=== PATIENT | male | born 1945 | race Caucasian/White ===

== ENCOUNTER 2017-08-16 09:32 | Inpatient (IN) | payer MEDICARE, OTHER ==
[~2017-08-16] VITALS: Ht 182.9 cm; Wt 81.5 kg
[2017-08-16] MEDS ORDERED: IODIXANOL 320 MG/ML 10 ML VIAL (for Rad CT) IVCONTRAST ONE (09:33)
[2017-08-16 09:42] VITALS: BP 138/68; PULSE 106; RESP 21; TEMP 97.5; O2SAT 100
--- NOTE | 2017-08-16 10:03 | RADRPT ---
EXAM DATE/TIME: 08/16/2017 09:49 [facility] COMPARISON: No previous studies available for comparison. INDICATIONS : Palpitations with shortness of breath. MEDICAL HISTORY : Hypertension. Hypercholesterolemia. SURGICAL HISTORY : None. ENCOUNTER: Initial ACUITY: 1 day PAIN SCORE: 0/10 LOCATION: Bilateral chest FINDINGS: A single view of the chest demonstrates the lungs to be symmetrically aerated without evidence of mas s, infiltrate or effusion. The cardiomediastinal contours are unremarkable. Osseous structures are intact. CONCLUSION: No acute disease. Tahir Gutiérrez MD on August 16, 2017 at 10:00 Board Certified Radiologist. This report was verified electronically.
[2017-08-16] MEDS ORDERED: TRIA37.53 PO (10:04)
[2017-08-16] MEDS ORDERED: SIMV10TA PO (10:04)
[2017-08-16] MEDS ORDERED: XARE20TA PO (10:04)
[2017-08-16] MEDS ORDERED: ALLO100T PO (10:04)
[2017-08-16] MEDS ORDERED: BYST10TA2 PO (10:04)
[2017-08-16] MEDS ORDERED: JAKAFI PO (10:04)
[2017-08-16 10:16] LABS: HEMATOCRIT 27.6 % (39.0-51.0); HEMOGLOBIN 8.8 GM/DL (13.0-17.0); MEAN CELL VOLUME 97.9 FL (80.0-100.0); MEAN CORPUSCULAR HEMOGLOBIN 31.1 PG (27.0-34.0); MEAN CORPUSCULAR HGB CONC 31.7 % (32.0-36.0); MEAN PLATELET VOLUME 9.3 FL (7.0-11.0); PLATELET COUNT 132 TH/MM3 (150-450); RED BLOOD COUNT 2.82 MIL/MM3 (4.50-5.90); RED CELL DISTRIBUTION WIDTH 28.2 % (11.6-17.2); WHITE BLOOD COUNT 28.2 TH/MM3 (4.0-11.0)
[2017-08-16 10:29] LABS: INTERNATIONAL NORMALIZED RATIO 1.4 RATIO; PROTHROMBIN TIME - PATIENT 14.4 SEC (9.8-11.6)
[2017-08-16 10:37] LABS: ALBUMIN 3.6 GM/DL (3.4-5.0); AST (GOT) 42 U/L (15-37); BICARBONATE 17.7 MEQ/L (21.0-32.0); BLOOD UREA NITROGEN 27 MG/DL (7-18); CALCIUM 8.4 MG/DL (8.5-10.1); CHLORIDE 105 MEQ/L (98-107); CREATININE 1.76 MG/DL (0.60-1.30); GLOMERULAR FILTRATION RATE 38 ML/MIN (>89); GLUCOSE,RANDOM 288 MG/DL (74-106); MAGNESIUM 1.9 MG/DL (1.5-2.5); SODIUM (NA) 137 MEQ/L (136-145)
[2017-08-16 10:38] LABS: ALT (GPT) 32 U/L (12-78)
[2017-08-16 10:52] LABS: ALKALINE PHOSPHATASE 89 U/L (45-117); TOTAL BILIRUBIN ADULT 1.1 MG/DL (0.2-1.0); TOTAL PROTEIN 6.3 GM/DL (6.4-8.2); TROPONIN I 0.03 NG/ML (0.02-0.05)
[2017-08-16 10:54] LABS: BANDS 19 % (0-6); BASOPHILS 2 % (0-2); CORRECTED NUCLEATED RBC 6 /100 WBC (0-0); KERATOCYTES 1+ (NORMAL); LYMPHOCYTES 9 % (9-44); METAMYELOCYTES 2 % (0-1); MONOCYTES 6 % (0-8); MYELOCYTES 7 % (0-0); NEUTROPHIL # MANUAL DIFF 23.4 TH/MM3 (1.8-7.7); NUCLEATED RED BLOOD CELL 6 (0-0); OVALOCYTES 1+ (NORMAL); POLYS (SEG NEUTROPHILS) 55 % (16-70)
[2017-08-16 10:55] LABS: ACANTHOCYTES 1+ (NORMAL); TEARDROP RBCS 1+ (NORMAL)
--- NOTE | 2017-08-16 11:21 | RADRPT ---
EXAM DATE/TIME: 08/16/2017 10:54 [facility] COMPARISON: CHEST SINGLE AP, August 16, 2017, 9:49. INDICATIONS : Dizzy,diaphortic,abnormal heart rate. IV CONTRAST: 50 cc Visipaque (iodixanol) IV RADIATION DOSE: 10.09 CTDIvol (mGy) MEDICAL HISTORY : Hypertension. Mylofibrosis SURGICAL HISTORY : None. ENCOUNTER: Initial ACUITY: 1 day PAIN SCALE: 0/10 LOCATION: Right chest TECHNIQUE: Volumetric scanning of the chest was performed using a pulmonary embolism protocol MIP images were re constructed. Using automated exposure control and adjustment of the mA and/or kV according to patien t size, radiation dose was kept as low as reasonably achievable to obtain optimal diagnostic quality images. DICOM format image data is available electronically for review and comparison. Follow-up recommendations for detected pulmonary nodules are based at a minimum on nodule size and pa tient risk factors according to Fleischner Society Guidelines. FINDINGS: PULMONARY ARTERIES: No filling defects are seen in the pulmonary arteries through the segmental level. LUNGS: There is no consolidation or pneumothorax . No concerning pulmonary nodule is visualized. There is m ild atelectasis in the posterior left lower lobe. There is a calcified granuloma in the right MID gela g. PLEURAE: There is no pleural thickening or pleural effusion. MEDIASTINUM: There is good visualization of the great vessels of the middle mediastinum. No evidence of mediastin al or hilar adenopathy/mass. There are coronary artery calcifications and mild cardiomegaly. MUSCULOSKELETAL: Within normal limits for patient age. MISCELLANEOUS: The visualized upper abdominal organs demonstrate no acute abnormality. CONCLUSION: 1. No evidence of pulmonary embolism. 2. Minimal atelectasis in the posterior left lower lobe. 3. Coronary artery calcifications and mild cardiomegaly. Tahir Gutiérrez MD on August 16, 2017 at 11:16 Board Certified Radiologist. This report was verified electronically.
[2017-08-16] MEDS ORDERED: SODIUM CHLORID 0.9% 500 ML INJ 500 ML IV ONE (11:45)
--- NOTE | 2017-08-16 11:56 | PD ---
HPI Chief Complaint: Cardiac Complaint Time Seen by Provider: 09:47 Travel History International Travel<30 days: No Contact w/Intl Traveler<30days: No Traveled to known affect area: No History of Present Illness HPI Patient is a 72 year old male, BIBEMS for cardiac complaints. He says he was on the treadmill this morning like he usually does, and started to feel his heart racing and got very sweaty. EMS was called, on arrival he had a pulse rate in the 200s. He was given adenosine with conversion to sinus tachycardia in the low 100s. Patient says this happened to him once before in May and he was found to have a blood clot in his lungs. He does report compliance with his Xarelto. He says he was feeling fine prior to the event this morning. He has not had any chest pain or shortness of breath. He denies nausea or vomiting. He denies fever or chills. Severity is moderate. PFSH Past Medical History High Cholesterol: Yes Hypertension: Yes Medical other: Yes (MYLOFIBROSIS, PE- FILTER LEFT LEG) Social History Alcohol Use: No Tobacco Use: No Substance Use: No Allergies-Medications (Allergen,Severity, Reaction): Coded Allergies: No Known Allergies (Unverified , 08/16/17) Reported Meds & Prescriptions Reported Meds & Active Scripts Active Reported Allopurinol 100 Mg Tab 100 Mg PO DAILY Xarelto (Rivaroxaban) 20 Mg Tab 20 Mg PO DAILY Triamterene-Hydrochlorothiazide 37.5-25 Mg Cap 1 Cap PO DAILY Simvastatin 10 Mg Tab 10 Mg PO DAILY Bystolic (Nebivolol) 10 Mg Tab 10 Mg PO DAILY [Jakafi] 15 Mg PO BID Review of Systems Except as stated in HPI: all other systems reviewed are Neg General / Constitutional: No: Fever, Chills HENT: No: Headaches, Lightheadedness Cardiovascular: Positive: Palpitations Respiratory: No: Shortness of Breath Gastrointestinal: No: Nausea Musculoskeletal: No: Myalgias Skin: No Rash, No Change in Pigmentation Neurologic: No: Weakness, Dizziness Physical Exam Narrative GENERAL: Awake and alert, in no acute distress. SKIN: Focused skin assessment warm/dry. HEAD: Atraumatic. Normocephalic. EYES: Pupils equal and round. No scleral icterus. EOMI. ENT: Mucous membranes pink and moist. NECK: Trachea midline. No JVD. CARDIOVASCULAR: Tachycardia. No murmur appreciated. RESPIRATORY: No accessory muscle use. Clear to auscultation. Breath sounds equal bilaterally. GASTROINTESTINAL: Abdomen soft, non-tender, nondistended. MUSCULOSKELETAL: No obvious deformities. No clubbing. No cyanosis. Large edema of the left leg (chronic). NEUROLOGICAL: Awake and alert. No obvious cranial nerve deficits. Motor grossly within normal limits. Normal speech. PSYCHIATRIC: Appropriate mood and affect; insight and judgment normal. Data Data Last Documented VS Vital Signs Date Time Temp Pulse Resp B/P (MAP) Pulse Ox O2 Delivery O2 Flow Rate FiO2 08/16/17 09:42 97.5 106 21 138/68 (91) 100 Room Air Orders Orders Electrocardiogram (08/16/17 09:43) Ckmb (Isoenzyme) Profile (08/16/17 09:43) Complete Blood Count With Diff (08/16/17 09:43) Comprehensive Metabolic Panel (08/16/17 09:43) Magnesium (Mg) (08/16/17 09:43) Prothrombin Time / Inr (Pt) (08/16/17 09:43) Act Partial Throm Time (Ptt) (08/16/17 09:43) Troponin I (08/16/17 09:43) Chest, Single Ap (08/16/17 09:43) Ecg Monitoring (08/16/17 09:43) Iv Access Insert/Monitor (08/16/17 09:43) Oximetry (08/16/17 09:43) Oxygen Administration (08/16/17 09:43) Ct Pulmonary Angiogram (08/16/17 09:47) Iodixanol 320 Inj (Rad Ct) (Visipaque 32 (08/16/17 09:33) Sodium Chlorid 0.9% 500 Ml Inj (Ns 500 M (08/16/17 11:45) Aspirin Chew (Aspirin Chew) (08/16/17 12:00) Admit Order (Ed Use Only) (08/16/17 ) Labs Laboratory Tests Test 08/16/17 09:49 White Blood Count 28.2 TH/MM3 Red Blood Count 2.82 MIL/MM3 Hemoglobin 8.8 GM/DL Hematocrit 27.6 % Mean Corpuscular Volume 97.9 FL Mean Corpuscular Hemoglobin 31.1 PG Mean Corpuscular Hemoglobin Concent 31.7 % Red Cell Distribution Width 28.2 % Platelet Count 132 TH/MM3 Mean Platelet Volume 9.3 FL CBC Comment AUTO DIFF Differential Total Cells Counted 100 Neutrophils % (Manual) 55 % Band Neutrophils % 19 % Lymphocytes % 9 % Monocytes % 6 % Basophils % 2 % Neutrophils # (Manual) 23.4 TH/MM3 Metamyelocytes 2 % Myelocytes 7 % Nucleated Red Blood Cells 6 /100 WBC Differential Comment FINAL DIFF MANUAL Platelet Estimate LOW Platelet Morphology Comment ENLARGED Tear Drop Cells 1+ Ovalocytes 1+ Acanthocytes 1+ Keratocytes 1+ Prothrombin Time 14.4 SEC Prothromb Time International Ratio 1.4 RATIO Activated Partial Thromboplast Time 30.4 SEC Blood Urea Nitrogen 27 MG/DL Creatinine 1.76 MG/DL Random Glucose 288 MG/DL Total Protein 6.3 GM/DL Albumin 3.6 GM/DL Calcium Level 8.4 MG/DL Magnesium Level 1.9 MG/DL Alkaline Phosphatase 89 U/L Aspartate Amino Transf (AST/SGOT) 42 U/L Alanine Aminotransferase (ALT/SGPT) 32 U/L Total Bilirubin 1.1 MG/DL Sodium Level 137 MEQ/L Potassium Level 4.4 MEQ/L Chloride Level 105 MEQ/L Carbon Dioxide Level 17.7 MEQ/L Anion Gap 14 MEQ/L Estimat Glomerular Filtration Rate 38 ML/MIN Total Creatine Kinase 57 U/L Troponin I 0.03 NG/ML MDM Medical Decision Making Medical Screen Exam Complete: Yes Emergency Medical Condition: Yes Interpretation(s) ECG shows sinus tachycardia at a rate of 104, minimal ST depression in leads V3 through V6. Differential Diagnosis ACS versus PE versus electrolyte abnormality Narrative Course Patient is a 72-year-old male who comes in due to heart palpitations and diaphoresis. Patient was given adenosine by EMS prior to arrival and his rhythm is now sinus tachycardia in the 100s. IV established, labs sent. Patient connected to the monitor technician. Labs show a white blood cell count of 28 and a hemoglobin of 8.6. Patient reports this is normal for him due to his blood disorder. CTA of the chest shows no evidence of PE. No acute abnormalities. While in the emergency department, patient did have a quick run of V. tach lasting only about 3 seconds, converting back to sinus rhythm on its own. Patient will be admitted for further management. Given an aspirin. Diagnosis Primary Impression: Dysrhythmia, cardiac Qualified Codes: I49.9 - Cardiac arrhythmia, unspecified Admitting Information Admitting Physician Requests: Admit Alana Galloway MD Aug 16, 2017 11:56
[2017-08-16] MEDS ORDERED: ASPIRIN 81 MG CHEW TAB CHEW ONE (12:00)
[2017-08-16 12:54] VITALS: BP 109/61; PULSE 105; RESP 20; O2SAT 100
[2017-08-16] MEDS ORDERED: MORPHINE SULFATE 2 MG/ML INJ IV PUSH PRN (13:45)
[2017-08-16] MEDS ORDERED: ACETAMINOPHEN/HYDROcodone 325 MG/5 MG TAB PO PRN (13:45)
[2017-08-16] MEDS ORDERED: ACETAMINOPHEN/HYDROcodone 325 MG/7.5 MG TAB PO PRN (13:45)
[2017-08-16] MEDS ORDERED: NALOXONE HCL 0.4 MG/ML AMP IV PUSH PRN (13:45)
[2017-08-16] MEDS ORDERED: ACETAMINOPHEN 325 MG TAB PO PRN (13:45)
[2017-08-16] MEDS ORDERED: ONDANSETRON HCL 4 MG/2 ML VIAL IVP PRN (14:00)
[2017-08-16 14:27] VITALS: O2SAT 100
[2017-08-16 14:31] VITALS: BP 110/74; PULSE 104; RESP 16; TEMP 97.6; O2SAT 95
[2017-08-16 15:32] VITALS: BP 103/70; PULSE 107; RESP 16; TEMP 97.5; O2SAT 100
--- NOTE | 2017-08-16 15:36 | HHI.HP ---
[facility] Tressa Patrick MD Admission Diagnosis Chest Pain Diagnoses: Chief Complaint: short of breath Travel History International Travel<30 Days: No Contact w/Intl Traveler <30 Da: No Traveled to Known Affected Are: No History of Present Illness 72 years old male with history of a svt/PE 2 years ogo, and myelofibrosis recently started treatment with Dr. Keane, came to the ED after he had sudden short of breath palpitation he was found to be in 120 tachycardia mostly SVT he was given a dose of adenosine which brought down his heart rate to normal, I consulted cardiology who was in the room my nurse at the time I saw the patient, patient was describing his episodes as feeling weird, and short of breath, patient stated he feels right back to normal after the adenosine. Patient had a discussion with the cardiology plan on doing the 2D echo, verify his murmur most likely mitral regurg on auscultation, if that is not revealing major issue, then patient can be discharged on beta-philipp and Holter monitor to follow-up with cardiology Review of Systems All systems reviewed and was positive for what is mentioned in history of present illness otherwise negative Past Family Social History Past Medical History SVT, PE, myelofibrosis, hyperlipidemia Past Surgical History No significant surgery Allergies: Coded Allergies: No Known Allergies (Unverified , 08/16/17) Family History Diabetes mellitus in his mother Social History Denied tobacco alcohol or illicit drug abuse Physical Exam Vital Signs Vital Signs Date Time Temp Pulse Resp B/P (MAP) Pulse Ox O2 Delivery O2 Flow Rate FiO2 08/16/17 15:32 97.5 107 16 103/70 (81) 100 08/16/17 14:31 97.6 104 16 110/74 (86) 95 08/16/17 14:27 100 21 08/16/17 12:54 105 20 109/61 (77) 100 Room Air 08/16/17 09:42 97.5 106 21 138/68 (91) 100 Room Air Physical Exam GENERAL: This is a well-nourished, well-developed patient, in no apparent distress. SKIN: No rashes, ecchymoses or lesions. Cool and dry. HEAD: Atraumatic. Normocephalic. No temporal or scalp tenderness. EYES: Pupils equal round and reactive. Extraocular motions intact. No scleral icterus. No injection or drainage. ENT: Nose without bleeding, purulent drainage or septal hematoma. Throat without erythema, tonsillar hypertrophy or exudate. Uvula midline. Airway patent. NECK: Trachea midline. No JVD or lymphadenopathy. Supple, nontender, no meningeal signs. CARDIOVASCULAR: Regular rate and rhythm without 3 out of 6 to 4 out of 6 systolic murmur RESPIRATORY: Clear to auscultation. Breath sounds equal bilaterally. No wheezes , rales, or rhonchi. GASTROINTESTINAL: Abdomen soft, non-tender, nondistended. No hepato-splenomegaly , or palpable masses. No guarding. MUSCULOSKELETAL: Extremities without clubbing, cyanosis, or edema. No joint tenderness, effusion, or edema noted. No calf tenderness. Negative Homans sign bilaterally. NEUROLOGICAL: Awake and alert. Cranial nerves II through XII intact. Motor and sensory grossly within normal limits. Five out of 5 muscle strength in all muscle groups. Normal speech. Laboratory Laboratory Tests Test 08/16/17 09:49 White Blood Count 28.2 Red Blood Count 2.82 Hemoglobin 8.8 Hematocrit 27.6 Mean Corpuscular Volume 97.9 Mean Corpuscular Hemoglobin 31.1 Mean Corpuscular Hemoglobin Concent 31.7 Red Cell Distribution Width 28.2 Platelet Count 132 Mean Platelet Volume 9.3 CBC Comment AUTO DIFF Differential Total Cells Counted 100 Neutrophils % (Manual) 55 Band Neutrophils % 19 Lymphocytes % 9 Monocytes % 6 Basophils % 2 Neutrophils # (Manual) 23.4 Metamyelocytes 2 Myelocytes 7 Nucleated Red Blood Cells 6 Differential Comment FINAL DIFF MANUAL Platelet Estimate LOW Platelet Morphology Comment ENLARGED Tear Drop Cells 1+ Ovalocytes 1+ Acanthocytes 1+ Keratocytes 1+ Prothrombin Time 14.4 Prothromb Time International Ratio 1.4 Activated Partial Thromboplast Time 30.4 Blood Urea Nitrogen 27 Creatinine 1.76 Random Glucose 288 Total Protein 6.3 Albumin 3.6 Calcium Level 8.4 Magnesium Level 1.9 Alkaline Phosphatase 89 Aspartate Amino Transf (AST/SGOT) 42 Alanine Aminotransferase (ALT/SGPT) 32 Total Bilirubin 1.1 Sodium Level 137 Potassium Level 4.4 Chloride Level 105 Carbon Dioxide Level 17.7 Anion Gap 14 Estimat Glomerular Filtration Rate 38 Total Creatine Kinase 57 Troponin I 0.03 Result Diagram: 08/16/1794808/16/[address] Angiography 08/16/17946 Signed Impressions: Service Date/Time: Wednesday, August 16, 2017 10:54 - CONCLUSION: 1. No evidence of pulmonary embolism. 2. Minimal atelectasis in the posterior left lower lobe. 3. Coronary artery calcifications and mild cardiomegaly. Tahir Gutiérrez MD Chest X-Ray 08/16/17942 Signed Impressions: Service Date/Time: Wednesday, August 16, 2017 09:49 - CONCLUSION: No acute disease. Tahir Gutiérrez MD Caprini VTE Risk Assessment Caprini VTE Risk Assessment: Mod/High Risk (score >= 2) Caprini Risk Assessment Model Point Value = 1 Point Value = 2 Point Value = 3 Point Value = 5 Age 41-60 Minor surgery BMI > 25 kg/m2 Swollen legs Varicose veins or History of unexplained or recurrent spontaneous Oral contraceptives or hormone replacement Sepsis (< 1 month) Serious lung disease, including pneumonia (< 1 month) Abnormal pulmonary function Acute myocardial infarction Congestive heart failure (< 1 month) History of inflammatory bowel disease Medical patient at bed rest Age 61-74 Arthroscopic surgery Major open surgery (> 45 min) Laparoscopic surgery (> 45 min) Malignancy Confined to bed (> 72 hours) Immobilizing plaster cast Central venous access Age >= 75 History of VTE Family history of VTE Factor V Leiden Prothrombin [id number] Lupus anticoagulant Anticardiolipin antibodies Elevated serum homocysteine Heparin-induced thrombocytopenia Other congenital or acquired thrombophilia Stroke (< 1 month) Elective arthroplasty Hip, pelvis, or leg fracture Acute spinal cord injury (< 1 month) Prophylaxis Regimen Total Risk Factor Score Risk Level Prophylaxis Regimen 0-1 Low Early ambulation 2 Moderate Order ONE of the following: *Sequential Compression Device (SCD) *Heparin 5000 units SQ BID 3-4 Higher Order ONE of the following medications: *Heparin 5000 units SQ TID *Enoxaparin/Lovenox 40 mg SQ daily (WT < 150 kg, CrCl > 30 mL/min) *Enoxaparin/Lovenox 30 mg SQ daily (WT < 150 kg, CrCl > 10-29 mL/min) *Enoxaparin/Lovenox 30 mg SQ BID (WT < 150 kg, CrCl > 30 mL/min) AND/OR *Sequential Compression Device (SCD) 5 or more Highest Order ONE of the following medications: *Heparin 5000 units SQ TID (Preferred with Epidurals) *Enoxaparin/Lovenox 40 mg SQ daily (WT < 150 kg, CrCl > 30 mL/min) *Enoxaparin/Lovenox 30 mg SQ daily (WT < 150 kg, CrCl > 10-29 mL/min) *Enoxaparin/Lovenox 30 mg SQ BID (WT < 150 kg, CrCl > 30 mL/min) AND *Sequential Compression Device (SCD) Assessment and Plan Assessment and Plan 72 years old male with history of myelofibrosis came with tachycardia and diaphoresis Tachyarrhythmia Heart murmur History of pulmonary embolism Leukocytosis, Anemia and thrombocytosis due to myelofibrosis DVT prophylaxis Plan: Admit for observation Patient received adenosine brought his rhythm to normal sinus Started on beta-philipp 25 mg twice daily by cardiology Consulted cardiology appreciate their input 2D echo Cardiac enzymes EKG personally reviewed by me If 2D echo did not reveal major issue, per cardiology patient can be discharged with Holter monitor to follow-up as an outpatient Follow-up as an outpatient with hematology oncology Heparin and SCD for DVT prophylaxis Discussed Condition With Patient ED physician, and cardiology Tobias Oquendo MD Aug 16, 2017 15:36
--- NOTE | 2017-08-16 15:55 | MB ---
cc: Oits Castro MD DATE: 08/16/2017 INDICATION: Arrhythmia . HISTORY OF PRESENT ILLNESS: This is a 72-year-old gentleman who has a history of pulmonary embolism, which was a triggered event after a long car ride and had inferior vena cava filter placed secondary to left lower extremity DVT. He also has myelofibrosis. He presents now with an episode of tachycardia. The patient states that he had 1 episode prior back in May at the time of his pulmonary embolism, developed racing heartbeat and diaphoresis. This time, he was at the gym in [place] local community, noticed that his heart rate started picking up. His took him back to their home and noted that his heart rate continued to climb. EMS was called. Apparently upon arrival, heart rate was 190 beats per minute. The patient did report that he was given adenosine with immediate conversion back to a normal rhythm. The patient states "I was ready to just walk off the ambulance, felt back to normal." Upon arrival to the emergency department, he has been in normal sinus. Apparently, there was 3 beats of a wide complex rhythm, although it was not stored on telemetry and is no longer hooked up. PAST MEDICAL HISTORY: Hyperlipidemia, myelofibrosis, DVT, PE, hypertension. SOCIAL HISTORY: Denies alcohol, tobacco or drug use. REVIEW OF SYSTEMS: A 12-point review of systems was performed and negative unless otherwise noted in the history of present illness. ALLERGIES: NO KNOWN DRUG ALLERGIES. MEDICATIONS: Allopurinol, Xarelto, triamterene/hydrochlorothiazide, simvastatin, Bystolic, Jakafi. PHYSICAL EXAMINATION: VITAL SIGNS: Temperature is 97, heart rate is 104, blood pressure 110/74 mmHg. GENERAL: Alert and oriented x 3, in no acute distress. HEENT: Shows pupils reactive to light and accommodation. Extraocular movements are intact. No elevation of jugular venous distention. No thyromegaly, lymphadenopathy. No carotid bruits. LUNGS: Clear to auscultation bilaterally. CARDIOVASCULAR: Regular with a 3/6 holosystolic murmur at the left sternal border right to the axilla. ABDOMEN: Nontender, nondistended with good bowel sounds. No hepatosplenomegaly. EXTREMITIES: Show no clubbing, cyanosis or edema. Good peripheral pulses. NEURO: Cranial nerves intact. Motor, sensory grossly intact. LABORATORY DATA: WBC 28.2, hemoglobin is 8.8, platelet counts 132. INR is 1.4. Sodium 137, potassium 4.4, BUN is 27, creatinine is 1.76. Troponin 0.03. ELECTROCARDIOGRAM: Sinus rhythm, some nonspecific ST-T wave changes inferolaterally. It looks like sinus rhythm. ASSESSMENT: 1. Arrhythmia. 2. Murmur. 3. History of pulmonary embolism. 4. Leukocytosis. 5. Anemia. PLAN: Based on the description of the event, it sounds pretty consistent with a supraventricular tachycardia with a rather abrupt onset and terminated with adenosine. The patient had one prior episode at the time of a pulmonary embolism, although this may have been a totally different arrhythmia, associated with sinus tachycardia. Would recommend that the patient discontinue diuretic therapy as it may be exacerbating the heart rhythm disturbance. Potentially consider addition of beta philipp. We will check a 2-D echocardiogram. Rule out cardiomyopathy, particularly with the mitral regurgitation sounding murmur. The patient also has significant leukocytosis and anemia, which may need some evaluation. If the patient from a cardiovascular perspective has no significant echo abnormalities, we can probably just continue with beta blockade and have him followup on an outpatient basis. MD ASCENCION Li/DARSHAN/mel , 02:58 PM , 03:27 PM
[2017-08-16 18:33] LABS: TROPONIN I 0.07 NG/ML (0.02-0.05)
[2017-08-16 21:13] VITALS: BP 112/72; PULSE 112; RESP 16; TEMP 97.8; O2SAT 100
[2017-08-16] MEDS: HEPARIN SODIUM - SQ 10,000 UNITS/ML VIAL SQ SCH (23:04)
[2017-08-16] MEDS: METOPROLOL TARTRATE 25 MG TAB PO SCH (23:04)
[2017-08-17] VITALS (8 sets, daily range): BP systolic 99–119; BP diastolic 63–78; PULSE 106–112; RESP 14–16; TEMP 97.6–98.6; O2SAT 96–100
--- NOTE | 2017-08-17 00:05 | EKG ---
Date Performed: 08/16/2017 Time Performed: 09:35:35 PTAGE: 72 years EKG: ATRIAL FLUTTER/TACHYCARDIA WITH RAPID VENTRICULAR RESPONSE INCOMPLETE RIGHT BUNDLE BRANCH B LOCK ST DEPRESSION, CONSIDER SUBENDOCARDIAL INJURY ABNORMAL ECG INTERPRETATION BASED ON A DEFAULT AGE OF 40 YEARS NO PREVIOUS TRACING DOCTOR: Luis Irving Interpretating Date/Time 08/17/2017 00:00:27
[2017-08-17] MEDS: HEPARIN SODIUM - SQ 10,000 UNITS/ML VIAL SQ SCH ×2 (06:00→14:00)
--- NOTE | 2017-08-17 08:21 | PD.CARD.PN ---
Subjective Subjective Remarks No further episodes of heart racing. No chest pain or shortness of breath. Telemetry with sinus tachycardia. Objective Medications Current Medications Medications (Trade) Dose Ordered Sig/Ellie Route Start Time Stop Time Status Last Admin (Tylenol) 650 mg Q4H PRN PO 08/16/17 13:45 (Zofran Inj) 4 mg Q6H PRN IVP 08/16/17 14:00 (Heparin Inj) 5,000 units Q8HR SQ 08/16/17 22:00 08/16/17 23:04 ([place] 5-325 Mg) 1 tab Q4H PRN PO 08/16/17 13:45 ([place] 7.5-325 Mg) 1 tab Q4H PRN PO 08/16/17 13:45 (Morphine Inj) 4 mg Q3H PRN IV PUSH 08/16/17 13:45 (Narcan Inj) 0.4 mg UNSCH PRN IV PUSH 08/16/17 13:45 (Lopressor) 25 mg Q12HR PO 08/16/17 21:00 08/16/17 23:04 (Pneumovax-23 Inj) 25 mcg ONCE ONCE IM 08/17/17 10:00 08/17/17 10:01 (Flu (Quadrivalent) Vaccine Inj) 0.5 ml ONCE ONCE IM 08/17/17 10:00 08/17/17 10:01 Vital Signs / I&O Vital Signs Date Time Temp Pulse Resp B/P (MAP) Pulse Ox O2 Delivery O2 Flow Rate FiO2 08/17/17 07:13 97.6 110 16 118/78 (91) 100 08/17/17 03:47 98.1 106 16 99/63 (75) 100 08/16/17 21:13 97.8 112 16 112/72 (85) 100 08/16/17 15:32 97.5 107 16 103/70 (81) 100 08/16/17 14:31 97.6 104 16 110/74 (86) 95 08/16/17 14:27 100 21 08/16/17 12:54 105 20 109/61 (77) 100 Room Air 08/16/17 09:42 97.5 106 21 138/68 (91) 100 Room Air I/O 08/16/17 08/16/17 08/16/17 08/17/17 08/17/1718 07:00 15:00 23:00 07:00 15:00 23:00 Intake Total 200 ml Balance 200 ml Intake Oral 200 ml Physical Exam GENERAL: Well-developed well-nourished. In no acute distress. NECK: No carotid bruits. No JVD. CARDIOVASCULAR: Slightly tachycardic rate and regular rhythm. 3/6 holosystolic murmur appreciated. RESPIRATORY: No accessory muscle use. Clear to auscultation. Breath sounds equal bilaterally. MUSCULOSKELETAL: No clubbing or cyanosis. No edema. NEUROLOGICAL: Awake and alert. Normal speech. Laboratory Laboratory Tests Test 08/16/17 09:49 08/16/17 17:23 White Blood Count 28.2 TH/MM3 Red Blood Count 2.82 MIL/MM3 Hemoglobin 8.8 GM/DL Hematocrit 27.6 % Mean Corpuscular Volume 97.9 FL Mean Corpuscular Hemoglobin 31.1 PG Mean Corpuscular Hemoglobin Concent 31.7 % Red Cell Distribution Width 28.2 % Platelet Count 132 TH/MM3 Mean Platelet Volume 9.3 FL CBC Comment AUTO DIFF Differential Total Cells Counted 100 Neutrophils % (Manual) 55 % Band Neutrophils % 19 % Lymphocytes % 9 % Monocytes % 6 % Basophils % 2 % Neutrophils # (Manual) 23.4 TH/MM3 Metamyelocytes 2 % Myelocytes 7 % Nucleated Red Blood Cells 6 /100 WBC Differential Comment FINAL DIFF MANUAL Platelet Estimate LOW Platelet Morphology Comment ENLARGED Tear Drop Cells 1+ Ovalocytes 1+ Acanthocytes 1+ Keratocytes 1+ Prothrombin Time 14.4 SEC Prothromb Time International Ratio 1.4 RATIO Activated Partial Thromboplast Time 30.4 SEC Blood Urea Nitrogen 27 MG/DL Creatinine 1.76 MG/DL Random Glucose 288 MG/DL Total Protein 6.3 GM/DL Albumin 3.6 GM/DL Calcium Level 8.4 MG/DL Magnesium Level 1.9 MG/DL Alkaline Phosphatase 89 U/L Aspartate Amino Transf (AST/SGOT) 42 U/L Alanine Aminotransferase (ALT/SGPT) 32 U/L Total Bilirubin 1.1 MG/DL Sodium Level 137 MEQ/L Potassium Level 4.4 MEQ/L Chloride Level 105 MEQ/L Carbon Dioxide Level 17.7 MEQ/L Anion Gap 14 MEQ/L Estimat Glomerular Filtration Rate 38 ML/MIN Total Creatine Kinase 57 U/L 59 U/L Troponin I 0.03 NG/ML 0.07 NG/ML Imaging Last [address] Angiography 08/16/1747 Signed Impressions: Service Date/Time: Wednesday, August 16, 2017 10:54 - CONCLUSION: 1. No evidence of pulmonary embolism. 2. Minimal atelectasis in the posterior left lower lobe. 3. Coronary artery calcifications and mild cardiomegaly. Tahir Gutiérrez MD Chest X-Ray 08/16/1743 Signed Impressions: Service Date/Time: Wednesday, August 16, 2017 09:49 - CONCLUSION: No acute disease. Tahir Gutiérrez MD Assessment and Plan Assessment and Plan Likely SVT: Metoprolol added. 2D echo ordered, rule out cardiomyopathy and valvular disease. If the patient from a cardiovascular perspective has no significant echo abnormalities, we can probably just continue with beta blockade and have him followup on an outpatient basis. Jakob Jack Aug 17, 2017 08:21
[2017-08-17] MEDS ORDERED: INFLUENZA VIRUS VACCINE (QUADRIVALENT) 0.5 ML SYR IM ONE (10:00)
[2017-08-17] MEDS ORDERED: PNEUMOCOCCAL POLYVALENT INJ 25 MCG/0.5 ML SYR IM ONE (10:00)
[2017-08-17] MEDS ORDERED: TRIAMTERENE/HCTZ 37.5 MG/25 MG CAP PO SCH (10:00)
[2017-08-17] MEDS: METOPROLOL TARTRATE 25 MG TAB PO SCH ×2 (10:04→22:16)
--- NOTE | 2017-08-17 10:05 | HHI.PR ---
Subjective Remarks Patient says he is feeling well. Walking around. Denies any chest pain or shortness of breath. Denies any nausea or vomiting. feels that medication from patient's myelofibrosis may be causing tachycardia. Request oncology evaluation. Objective Vital Signs Date Time Temp Pulse Resp B/P (MAP) Pulse Ox O2 Delivery O2 Flow Rate FiO2 08/17/17 07:13 97.6 110 16 118/78 (91) 100 08/17/17 03:47 98.1 106 16 99/63 (75) 100 08/16/17 21:13 97.8 112 16 112/72 (85) 100 08/16/17 15:32 97.5 107 16 103/70 (81) 100 08/16/17 14:31 97.6 104 16 110/74 (86) 95 08/16/17 14:27 100 21 08/16/17 12:54 105 20 109/61 (77) 100 Room Air I/O 08/16/17 08/16/17 08/16/17 08/17/17 08/17/17 08/17/17 07:00 15:00 23:00 07:00 15:00 23:00 Intake Total 200 ml Balance 200 ml Intake Oral 200 ml Result Diagram: 08/16/1749 08/16/1749 Objective Remarks GENERAL: Patient walking in room. Appears comfortable. Alert and oriented. SKIN: Warm and dry. HEAD: Normocephalic. EYES: No scleral icterus. No injection or drainage. NECK: Supple, trachea midline. No JVD. CARDIOVASCULAR: Regular rate and rhythm without murmurs, gallops, or rubs. RESPIRATORY: Breath sounds equal bilaterally. No accessory muscle use. GASTROINTESTINAL: Abdomen soft, non-tender, nondistended. MUSCULOSKELETAL: No cyanosis, or edema. BACK: Nontender without obvious deformity. No CVA tenderness. A/P Assessment and Plan 72 years old male with history of myelofibrosis came with tachycardia and diaphoresis //Tachyarrhythmia = [facility] cardiology assistance. Echocardiogram pending. Pending cardiology clearance. //Heart murmur. Echocardiogram pending per //History of pulmonary embolism. CT pulmonary gram-negative. //Leukocytosis, Anemia and thrombocytosis due to myelofibrosis //DVT prophylaxis. Heparin subcu Discharge Planning Cardiogram pending Pending cardiology and oncology clearance. Jhon Clifofrd MD Aug 17, 2017 10:05
[2017-08-17] MEDS: PRAVASTATIN SOD 20 MG TAB PO SCH (10:46)
[2017-08-17] MEDS: RIVAROXABAN 20 MG TAB PO SCH (10:46)
[2017-08-17 11:06] LABS: AUTOMATED NEUTROPHIL # 19.7 TH/MM3 (1.8-7.7); BASOPHIL # 0.2 TH/MM3 (0-0.2); EOSINOPHIL # 0.1 TH/MM3 (0-0.4); EOSINOPHIL % 0.6 % (0.0-4.0); HEMATOCRIT 24.3 % (39.0-51.0); LYMPH % 7.8 % (9.0-44.0); LYMPHOCYTE # 1.8 TH/MM3 (1.0-4.8); MEAN CORPUSCULAR HEMOGLOBIN 30.8 PG (27.0-34.0); MEAN CORPUSCULAR HGB CONC 32.8 % (32.0-36.0); MONO % 4.1 % (0.0-8.0); MONOCYTE # 0.9 TH/MM3 (0-0.9); NEUT % 86.5 % (16.0-70.0); PLATELET COUNT 121 TH/MM3 (150-450); RED BLOOD COUNT 2.59 MIL/MM3 (4.50-5.90); RED CELL DISTRIBUTION WIDTH 28.3 % (11.6-17.2); WHITE BLOOD COUNT 22.8 TH/MM3 (4.0-11.0)
[2017-08-17 11:20] LABS: CALCIUM 8.4 MG/DL (8.5-10.1); CREATININE 1.39 MG/DL (0.60-1.30)
[2017-08-17 11:42] LABS: BANDS 12 % (0-6); BASOPHILS 3 % (0-2); CORRECTED NUCLEATED RBC 4 /100 WBC (0-0); LYMPHOCYTES 15 % (9-44); METAMYELOCYTES 1 % (0-1); MYELOCYTES 2 % (0-0); NEUTROPHIL # MANUAL DIFF 18.7 TH/MM3 (1.8-7.7); NUCLEATED RED BLOOD CELL 4 (0-0); OVALOCYTES 1+ (NORMAL); POLYS (SEG NEUTROPHILS) 67 % (16-70)
[2017-08-17 11:43] LABS: ACANTHOCYTES OCC (NORMAL); TEARDROP RBCS 1+ (NORMAL)
--- NOTE | 2017-08-17 14:39 | EKG ---
Date Performed: 08/16/2017 Time Performed: 19:48:38 PTAGE: 72 years EKG: Probable atrial flutter MARKED LEFT AXIS DEVIATION INCOMPLETE RIGHT BUNDLE BRANCH BLOCK ABN ORMAL ECG PREVIOUS TRACING : 08/16/2017 15.27 DOCTOR: Cruz Storm Interpretating Date/Time 08/17/2017 14:36:07
--- NOTE | 2017-08-17 15:47 | EKG ---
Date Performed: 08/16/2017 Time Performed: 15:27:01 PTAGE: 72 years EKG: ATRIAL FLUTTER/TACHYCARDIA WITH RAPID VENTRICULAR RESPONSE MARKED LEFT AXIS DEVIATION INCOM PLETE RIGHT BUNDLE BRANCH BLOCK ABNORMAL ECG Since the PREVIOUS TRACING , no significant change noted PREVIOUS TRACIN08/16/2017 09.35 DOCTOR: Cruz Storm Interpretating Date/Time 08/17/2017 15:42:46
--- NOTE | 2017-08-17 18:29 | MB ---
cc: Anurag De Leon MD DATE: 08/17/2017 ATTENDING PHYSICIAN: Jhon Clifford MD REASON FOR CONSULTATION: Hematology consulted to render opinion on patient with myelofibrosis, admitted with atrial flutter. HISTORY OF PRESENT ILLNESS: The patient is a very pleasant 72-year-old male with history of secondary myelofibrosis, who presented to the hospital complaining of shortness of breath and palpitation. He said that he was working out in the gym, but he was not doing strenuous exercise. He felt palpitation and became short of breath. He had some dizziness and nausea. His pulse was around 120. He came to the emergency room and noted to have SVT. He was given adenosine and his pulse rate went back to normal. EKG showed atrial flutter. He had a similar episode a few months ago when he had a pulmonary embolism. On presentation, a CT angiogram did not show any pulmonary embolism. He denies fever or chills. He said that he is back to baseline. He wants to go home. He denies any chest pressure. He denies any shortness of breath or cough at this time. He has no nausea, vomiting, diarrhea, abdominal pain. Denies change in urinary habits. Denies any bleeding or bruising. He has been taking the Jakafi. PAST MEDICAL HISTORY: 1. Secondary myelofibrosis. 2. Pulmonary embolism. 3. SVT. 4. Hyperlipidemia. 5. Splenomegaly. 6. Left lower extremity venous thrombosis, first episode more than 12 years ago. Recently had a recurrence after a 20-hour car ride. He has been on Xarelto. PAST SURGICAL HISTORY: IVC filter placement. FAMILY HISTORY: Diabetes mellitus. SOCIAL HISTORY: Denied tobacco or alcohol use. ALLERGIES: NO KNOWN DRUG ALLERGIES. CURRENT MEDICATIONS: 1. Allopurinol. 2. Xarelto. 3. Triamterene/hydrochlorothiazide. 4. Pravastatin. 5. Heparin. 6. Metoprolol. REVIEW OF SYSTEMS: CONSTITUTIONAL: Negative. EYES: Negative. ENT: Negative. CARDIOVASCULAR: As above. RESPIRATORY: As above. GASTROINTESTINAL: Negative. GENITOURINARY: No dysuria, hematuria. MUSCULOSKELETAL: Negative. HEMATOLOGIC: As above. ENDOCRINE: Negative. DERMATOLOGIC: Negative. PSYCHIATRIC: Negative. NEUROLOGIC: Negative. PHYSICAL EXAMINATION: VITAL SIGNS: Temperature 98.6, blood pressure 117/76, pulse 120, respiratory rate 16, O2 saturation 100% on room air. GENERAL: He is alert, oriented x 3, no acute distress. HEENT: Atraumatic, normocephalic. Pupils are equal, round, reactive to light. Extraocular muscles intact. No sclerae icterus. Oropharynx, dry mucosa. No lesion, no thrush. NECK: No thyromegaly. No palpable mass. LYMPHATIC: No palpable cervical, clavicular, axillary lymph nodes. CARDIOVASCULAR: Regular S1, S2, tachycardic. Pulse rate 120, loud ejection murmur. LUNGS: Clear to auscultation bilaterally. ABDOMEN: Soft, nontender, palpable spleen edge about 4 fingerbreadths below costal margin, nontender. EXTREMITIES: Bilateral ankle edema, more prominent left side. No calf tenderness. BACK: No paravertebral tenderness. SKIN: No rash or petechiae. NEUROLOGIC: Nonfocal. LABORATORY DATA: WBC 22.8, hemoglobin 8, platelet count 121,000. Creatinine 1.39. ASSESSMENT: 1. Chronic myeloproliferative disorder. 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 His bone marrow biopsy in 2013 showed a chronic myeloproliferative disorder with 3+ myelofibrosis. He recently developed abdominal pain and spleen size has increased to 24 cm. He started Jakafi about a month ago. He has been tolerating it very well. He seems to have good response, his spleen size appears smaller on exam. He has chronic anemia, but he is not transfusion dependent. His white blood cell count is stable at 22,000. His platelet count trended lower to 121,000, but he has no bleeding. Hemoglobin trended down to 8. We will continue to monitor his CBC while he is in the hospital. I doubt that the Jakafi or myelofibrosis is causing the supraventricular tachycardia. 2. Atrial flutter/SVT. He had similar episode a few months ago when he had a pulmonary embolism. He now has recurrent SVT. He was given adenosine in the emergency room. On exam, his pulse rate trended back up to 120; however, he has no symptoms at this time. He just as had an echocardiogram this afternoon and result is pending. He has a loud ejection murmur on exam. Cardiology is following. 3. 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 He recently had recurrent deep venous thrombosis and small pulmonary embolis [place]. He has been on Xarelto. He has chronic lower extremity edema, but no apparent recurrent clot at this time. 4. Hyperlipidemia. RECOMMENDATIONS: 1. Continue to monitor CBC. 2. Continue Xarelto. I will stop the heparin injection. 3. The patient can resume the Jakafi once he is discharged from the hospital. 4. Await cardiology workup. Thank you, Dr. Clifford, for asking me to see this patient. MD ROCK Vick/JS , 05:28 PM , 06:28 PM MTDLuc
[2017-08-18] VITALS (10 sets, daily range): BP systolic 88–116; BP diastolic 51–74; PULSE 106–111; RESP 14–20; TEMP 97.9–98.8; O2SAT 97–100
--- NOTE | 2017-08-18 07:46 | PD.ONC.PN ---
Subjective Subjective Remarks Sitting in the chair. No CP/SOB. No palpitation. Wanted to go home. Objective Data Date Time Temp Pulse Resp B/P (MAP) Pulse Ox O2 Delivery O2 Flow Rate FiO2 08/18/17 07:30 98.2 111 18 106/63 (77) 100 08/18/17 05:16 98.0 111 14 113/59 (77) 98 08/18/17 00:23 97.9 111 18 99/65 (76) 99 08/17/17 21:00 98.0 112 14 119/70 (86) 96 08/17/17 15:36 112 08/17/17 14:33 98.6 111 16 117/76 (90) 100 08/17/17 12:17 108 08/17/17 11:07 97.6 110 16 110/75 (87) 100 08/18/17 08/18/17 08/18/17 07:00 15:00 23:00 Intake Total 230 ml Balance 230 ml Result Diagram: 08/17/17 1053 08/17/17 1053 Laboratory Results Laboratory Tests Test 08/17/17 10:53 White Blood Count 22.8 TH/MM3 Red Blood Count 2.59 MIL/MM3 Hemoglobin 8.0 GM/DL Hematocrit 24.3 % Mean Corpuscular Volume 94.0 FL Mean Corpuscular Hemoglobin 30.8 PG Mean Corpuscular Hemoglobin Concent 32.8 % Red Cell Distribution Width 28.3 % Platelet Count 121 TH/MM3 Mean Platelet Volume 9.0 FL Neutrophils (%) (Auto) 86.5 % Lymphocytes (%) (Auto) 7.8 % Monocytes (%) (Auto) 4.1 % Eosinophils (%) (Auto) 0.6 % Basophils (%) (Auto) 1.0 % Neutrophils # (Auto) 19.7 TH/MM3 Lymphocytes # (Auto) 1.8 TH/MM3 Monocytes # (Auto) 0.9 TH/MM3 Eosinophils # (Auto) 0.1 TH/MM3 Basophils # (Auto) 0.2 TH/MM3 CBC Comment AUTO DIFF Differential Total Cells Counted 100 Neutrophils % (Manual) 67 % Band Neutrophils % 12 % Lymphocytes % 15 % Basophils % 3 % Neutrophils # (Manual) 18.7 TH/MM3 Metamyelocytes 1 % Myelocytes 2 % Nucleated Red Blood Cells 4 /100 WBC Differential Comment FINAL DIFF MANUAL Platelet Estimate LOW Platelet Morphology Comment NORMAL Tear Drop Cells 1+ Ovalocytes 1+ Acanthocytes OCC Blood Urea Nitrogen 32 MG/DL Creatinine 1.39 MG/DL Random Glucose 116 MG/DL Calcium Level 8.4 MG/DL Sodium Level 140 MEQ/L Potassium Level 4.2 MEQ/L Chloride Level 108 MEQ/L Carbon Dioxide Level 24.0 MEQ/L Anion Gap 8 MEQ/L Estimat Glomerular Filtration Rate 50 ML/MIN Administered Medications Medications (Trade) Dose Ordered Sig/Ellie Route PRN Reason Start Time Stop Time Status Last Admin Dose Admin Metoprolol Tartrate (Lopressor) 25 mg Q12HR PO 08/16/17 21:00 08/17/17 22:16 Rivaroxaban (Xarelto) 20 mg DAILY PO 08/17/17 10:00 08/17/17 10:46 Triamterene/HCTZ (Dyazide 37.5-25 Mg) 1 cap DAILY PO 08/17/17 10:00 08/17/17 10:00 Pravastatin Sodium (Pravachol) 20 mg DAILY PO 08/17/17 10:00 08/17/17 10:46 Objective Remarks GENERAL: Well-nourished, well-developed patient. SKIN: Warm and dry. HEAD: Normocephalic. EYES: No scleral icterus. No injection or drainage. NECK: Supple, trachea midline. No JVD or lymphadenopathy. LYMPHATIC: No adenopathy. CARDIOVASCULAR: Regular rate and rhythm, tachycardia, 2+ejection murmur. RESPIRATORY: Breath sounds equal bilaterally. No accessory muscle use. GASTROINTESTINAL: Abdomen soft, non-tender, nondistended. EXTREMITIES: No cyanosis, 1+BLE edema, L>R. No calves tenderness. MUSCULOSKELETAL: Adequate muscle tone. NEUROLOGICAL: No obvious focal deficit. Awake, alert, and oriented x3. PSYCHIATRIC: Appropriate mood and affect; insight and judgment normal. Assessment/Plan Assessment 1. Chronic myeloproliferative disorder. 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 His bone marrow biopsy in 2013 showed a chronic myeloproliferative disorder with 3+ myelofibrosis. He recently developed abdominal pain and spleen size has increased to 24 cm. He started Jakafi about a month ago. He has been tolerating it very well. He seems to have good response, his spleen size appears smaller on exam. He has chronic anemia and thrombocytopenia. He has chronic leukocytosis. I doubt that the Jakafi or myelofibrosis is causing the supraventricular tachycardia. 2. Atrial flutter/SVT. He had similar episode a few months ago when he had a pulmonary embolism. He now has recurrent SVT. He was given adenosine in the emergency room. He had an echocardiogram and result is pending. He has a loud ejection murmur on exam. Cardiology is following. 3. 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 He recently had recurrent deep venous thrombosis and small pulmonary embolis after [place] car ride. He has been on Xarelto. He has chronic lower extremity edema, but no apparent recurrent clot at this time. Plan PLAN: 1. Continue to monitor CBC. 2. Continue Xarelto. 3. The patient can resume the Jakafi once he is discharged from the hospital. 4. Await cardiology workup. 5. Patient can be d/c once clear by cardiology. Anurag De Leon MD Aug 18, 2017 07:46
[2017-08-18] MEDS: ALLOPURINOL 100 MG TAB PO SCH (09:03)
[2017-08-18] MEDS: RIVAROXABAN 20 MG TAB PO SCH (09:04)
[2017-08-18] MEDS: PRAVASTATIN SOD 20 MG TAB PO SCH (09:05)
[2017-08-18] MEDS: METOPROLOL TARTRATE 50 MG TAB PO SCH ×3 (09:05→21:00)
[2017-08-18] MEDS ORDERED: METOPROLOL TARTRATE 5 MG/5 ML VIAL ONE ×2 (09:33→09:40)
--- NOTE | 2017-08-18 09:58 | HHI.PR ---
Subjective Remarks Called by nurse this morning to report that heart rate in the 200s. Patient initially says he feels fine, then reports dull chest pressure. Appears to be SVT with aberrancy. No change with 6 mg of IV adenosine. 5 mg IV metoprolol given with improvement in heart rate to 108. Systolic blood pressures in the 90s. Patient reports resolution of chest pressure. Cardiology contacted by nursing. Objective Vital Signs Date Time Temp Pulse Resp B/P (MAP) Pulse Ox O2 Delivery O2 Flow Rate FiO2 08/18/17 07:30 98.2 111 18 106/63 (77) 100 08/18/17 05:16 98.0 111 14 113/59 (77) 98 08/18/17 00:23 97.9 111 18 99/65 (76) 99 08/17/17 21:00 98.0 112 14 119/70 (86) 96 08/17/17 15:36 112 08/17/17 14:33 98.6 111 16 117/76 (90) 100 08/17/17 12:17 108 08/17/17 11:07 97.6 110 16 110/75 (87) 100 I/O 08/17/17 08/17/17 08/17/17 08/18/17 08/18/17 08/18/17 07:00 15:00 23:00 07:00 15:00 23:00 Intake Total 230 ml Balance 230 ml Intake Oral 230 ml # Voids 2 Result Diagram: 08/17/17 1053 08/17/17 1053 Objective Remarks GENERAL: Patient walking in room. Appears uncomfortable.. Alert and oriented. Appears comfortable after heart rate improved. SKIN: Warm and dry. HEAD: Normocephalic. EYES: No scleral icterus. No injection or drainage. NECK: Supple, trachea midline. No JVD. CARDIOVASCULAR: Tachycardic. RESPIRATORY: Breath sounds equal bilaterally. No accessory muscle use. GASTROINTESTINAL: Abdomen soft, non-tender, nondistended. MUSCULOSKELETAL: No cyanosis, or edema. BACK: Nontender without obvious deformity. No CVA tenderness. A/P Assessment and Plan 72 years old male with history of myelofibrosis came with tachycardia and diaphoresis //Tachyarrhythmia = Appreciate cardiology assistance. Echocardiogram pending. Pending cardiology clearance. = 08/18. Episode of SVT with aberrancy. Resolved after IV metoprolol. Transferred to telemetry unit. Appreciate cardiology assistance //Heart murmur. Echocardiogram still pending. //History of pulmonary embolism. CT pulmonary gram-negative. //Leukocytosis, Anemia and thrombocytosis due to myelofibrosis //DVT prophylaxis. Heparin subcu Discharge Planning echoCardiogram pending Pending cardiology and oncology clearance. = 08/18. Episode of SVT with aberrancy. Resolved with IV metoprolol. Transferred to telemetry floor. Jhon Clifford MD Aug 18, 2017 09:58
[2017-08-18] MEDS ORDERED: ADENOSINE IV SOLN 3 MG/ML 2 ML VIAL IV PUSH ONE (10:45)
--- NOTE | 2017-08-18 11:57 | ECHRPT ---
Indication: SHORTNESS OF BREATH CONCLUSIONS Normal left ventricular size. Wall thickness is normal. The left ventricular systolic function is severely reduced with an estimated ejection fraction in th e range of 25-30%. The right ventricle is moderately dilated. LV systolic function decreased withestimated EF 30-35%. Anterior and septal hypokinesis The right ventricular systoilc function is moderately decreased. RV is moderately to severelydilated The left atrial size is moderately to severely dilated. The right atrial size is moderately to severely dilated. [id number] mitral valve regurgitation. Diffuse calcification of the aortic valve. moderate to severe aortic stenosis Trace aortic valve regurgitation. There is moderate to severe tricuspid valve regurgitation. The estimated pulmonary arterial pressure is 54.9 mmHg. No pulmonary valve regurgitation. There is no pericardial effusion. BP: 118 / 78 HR: 110 Rhythm: Sinus MEASUREMENTS (Male / Female) Normal Values Technical Quality:Fair 2D ECHO LV Diastolic Diameter PLAX 5.0 cm 4.2 - 5.9 / 3.9 - 5.3 cm LV Systolic Diameter PLAX 4.5 cm IVS Diastolic Thickness 0.9 cm 0.6 - 1.0 / 0.6 - 0.9 cm LVPW Diastolic Thickness 0.9 cm 0.6 - 1.0 / 0.6 - 0.9 cm LV Relative Wall Thickness 0.4 RV Internal Dim ED PLAX 4.7 cm LVOT Diameter 2.2 cm Aortic Root Diameter 3.3 cm LA Systolic Diameter LX 4.2 cm 3.0 - 4.0 / 2.7 - 3.8 cm DOPPLER AV Peak Velocity 352.0 cm/s AV Peak Gradient 50.0 mmHg AV Mean Gradient 27.0 mmHg AV Velocity Time Integral 72.9 cm LVOT Peak Velocity 70.5 cm/s LVOT Peak Gradient 2.0 mmHg LVOT Velocity Time Integral 16.0 cm AV Area Cont Eq vti 0.8 cm AV Area Cont Eq pk 0.8 cm Mitral E Point Velocity 130.0 cm/s LV E' Lateral Velocity 12.3 cm/s Mitral E to LV E' Lateral Ratio 10.6 LV E' Septal Velocity 2.1 cm/s Mitral E to LV E' Septal Ratio 60.7 TR Peak Velocity 335.0 cm/s TR Peak Gradient 45.0 mmHg Right Atrial Pressure 10.0 mmHg Pulmonary Artery Systolic Pressu 54.9 mmHg Right Ventricular Systolic Press 54.9 mmHg PV Peak Velocity 36.1 cm/s PV Peak Gradient 0.5 mmHg FINDINGS LEFT VENTRICLE Normal left ventricular size. Wall thickness is normal. The left ventricular systolic function is severely reduced with an estimated ejection fraction in th e range of 25-30%. RIGHT VENTRICLE The right ventricle is moderately dilated. The right ventricular systoilc function is moderately decreased. LEFT ATRIUM The left atrial size is moderately to severely dilated. RIGHT ATRIUM The right atrial size is moderately to severely dilated. ATRIAL SEPTUM No atrial level shunt is demonstrated by color flow Doppler interrogation. AORTA The aortic root and proximal ascending aorta are not well visualized. MITRAL VALVE [id number] mitral valve regurgitation. AORTIC VALVE Diffuse calcification of the aortic valve. Trace aortic valve regurgitation. TRICUSPID VALVE There is moderate to severe tricuspid valve regurgitation. The estimated pulmonary arterial pressure is 54.9 mmHg. PULMONARY VALVE No pulmonary valve regurgitation. PERICARDIUM There is no pericardial effusion. Hussain Muro MD, FACC (Electronically Signed) Final Date:18 August 2017 11:56
[2017-08-18 13:52] LABS: AUTOMATED NEUTROPHIL # 14.6 TH/MM3 (1.8-7.7); BASOPHIL # 0.5 TH/MM3 (0-0.2); EOSINOPHIL # 0.1 TH/MM3 (0-0.4); EOSINOPHIL % 0.3 % (0.0-4.0); HEMATOCRIT 22.9 % (39.0-51.0); HEMOGLOBIN 7.6 GM/DL (13.0-17.0); LYMPHOCYTE # 1.6 TH/MM3 (1.0-4.8); MEAN CORPUSCULAR HEMOGLOBIN 31.1 PG (27.0-34.0); MEAN PLATELET VOLUME 9.3 FL (7.0-11.0); MONO % 5.3 % (0.0-8.0); MONOCYTE # 0.9 TH/MM3 (0-0.9); NEUT % 82.4 % (16.0-70.0); PLATELET COUNT 113 TH/MM3 (150-450); RED BLOOD COUNT 2.44 MIL/MM3 (4.50-5.90); RED CELL DISTRIBUTION WIDTH 28.5 % (11.6-17.2); WHITE BLOOD COUNT 17.7 TH/MM3 (4.0-11.0)
[2017-08-18 14:04] LABS: ALBUMIN 3.5 GM/DL (3.4-5.0); BICARBONATE 24.4 MEQ/L (21.0-32.0); CALCIUM 8.3 MG/DL (8.5-10.1); CREATININE 1.3 MG/DL (0.60-1.30)
[2017-08-18 14:05] LABS: PHOSPHORUS 3.5 MG/DL (2.5-4.9)
[2017-08-18 17:31] LABS: BANDS 8 % (0-6); BASOPHILS 4 % (0-2); CORRECTED NUCLEATED RBC 6 /100 WBC (0-0); MONOCYTES 3 % (0-8); MYELOCYTES 1 % (0-0); NEUTROPHIL # MANUAL DIFF 14.7 TH/MM3 (1.8-7.7); NUCLEATED RED BLOOD CELL 6 (0-0); POLYS (SEG NEUTROPHILS) 72 % (16-70); PROMYELOCYTES 2 % (0-0)
[2017-08-18 17:32] LABS: KERATOCYTES OCC (NORMAL); LYMPHOCYTES 10 % (9-44); OVALOCYTES 1+ (NORMAL); TEARDROP RBCS 2+ (NORMAL)
[2017-08-19] VITALS (16 sets, daily range): BP systolic 98–126; BP diastolic 11–78; PULSE 109–114; RESP 16–36; TEMP 97.7–98.9; O2SAT 93–100
[2017-08-19] MEDS ORDERED: SODIUM CHLOR 0.9% 250 ML INJ 250 ML IV ONE
[2017-08-19 05:39] LABS: AUTOMATED NEUTROPHIL # 13.9 TH/MM3 (1.8-7.7); BASOPHIL # 0.5 TH/MM3 (0-0.2); EOSINOPHIL # 0.1 TH/MM3 (0-0.4); EOSINOPHIL % 0.7 % (0.0-4.0); HEMATOCRIT 21.6 % (39.0-51.0); HEMOGLOBIN 7.2 GM/DL (13.0-17.0); LYMPH % 6.2 % (9.0-44.0); MEAN CELL VOLUME 94.4 FL (80.0-100.0); MEAN CORPUSCULAR HEMOGLOBIN 31.5 PG (27.0-34.0); MEAN CORPUSCULAR HGB CONC 33.4 % (32.0-36.0); MEAN PLATELET VOLUME 9.1 FL (7.0-11.0); MONO % 5.9 % (0.0-8.0); NEUT % 84.2 % (16.0-70.0); PLATELET COUNT 94 TH/MM3 (150-450); RED BLOOD COUNT 2.29 MIL/MM3 (4.50-5.90); RED CELL DISTRIBUTION WIDTH 27.9 % (11.6-17.2); WHITE BLOOD COUNT 16.5 TH/MM3 (4.0-11.0)
[2017-08-19 06:05] LABS: ALBUMIN 3.6 GM/DL (3.4-5.0); BICARBONATE 23.8 MEQ/L (21.0-32.0); CALCIUM 8.3 MG/DL (8.5-10.1); CREATININE 1.19 MG/DL (0.60-1.30); MAGNESIUM 1.8 MG/DL (1.5-2.5)
[2017-08-19 06:06] LABS: PHOSPHORUS 3.7 MG/DL (2.5-4.9)
--- NOTE | 2017-08-19 08:04 | PD.CARD.PN ---
Subjective Subjective Remarks Recurrent episode of SVT yesterday that converted with adenosine. No further episodes overnight. EP consult pending. No chest pain or shortness of breath. Telemetry with sinus tachycardia. (Jakob Jack) Objective Medications Current Medications Medications (Trade) Dose Ordered Sig/Ellie Route Start Time Stop Time Status Last Admin (Tylenol) 650 mg Q4H PRN PO 08/16/17 13:45 (Zofran Inj) 4 mg Q6H PRN IVP 08/16/17 14:00 ([place] 5-325 Mg) 1 tab Q4H PRN PO 08/16/17 13:45 ([place] 7.5-325 Mg) 1 tab Q4H PRN PO 08/16/17 13:45 (Morphine Inj) 4 mg Q3H PRN IV PUSH 08/16/17 13:45 (Narcan Inj) 0.4 mg UNSCH PRN IV PUSH 08/16/17 13:45 (Zyloprim) 100 mg DAILY PO 08/18/17 09:00 08/18/17 09:03 (Xarelto) 20 mg DAILY PO 08/17/17 10:00 08/18/17 09:04 (Pravachol) 20 mg DAILY PO 08/17/17 10:00 08/18/17 09:05 (Lopressor) 50 mg Q12HR PO 08/18/17 09:00 08/18/17 09:05 Sodium Chloride 250 ml @ 15 mls/hr ONCE ONCE IV 08/19/17 00:00 08/19/17 16:39 Vital Signs / I&O Vital Signs Date Time Temp Pulse Resp B/P (MAP) Pulse Ox O2 Delivery O2 Flow Rate FiO2 08/19/17 04:00 98.3 110 16 98/63 (75) 96 08/19/17 00:00 98.3 109 26 113/62 (79) 99 08/19/17 00:00 109 08/18/17 23:39 100 21 08/18/17 20:00 98.4 111 20 101/60 (74) 100 08/18/17 18:00 98.8 111 16 88/51 (63) 100 08/18/17 16:00 98.4 110 16 101/56 (71) 100 08/18/17 12:00 98.6 109 16 97/54 (68) 100 08/18/17 10:00 98.4 106 16 116/74 (88) 100 08/18/17 09:30 97 2.00 08/18/17 09:30 97 Nasal Cannula 2.00 I/O 08/18/17 08/18/17 08/18/17 08/19/17 08/19/17 08/19/17 07:00 15:00 23:00 07:00 15:00 23:00 Intake Total 230 ml 580 ml 0 ml Output Total 1100 ml 200 ml Balance 230 ml -520 ml -200 ml Intake Oral 230 ml 580 ml 0 ml Output Urine Total 1100 ml 200 ml # Voids 2 Physical Exam GENERAL: Well-developed well-nourished. In no acute distress. NECK: No carotid bruits. No JVD. CARDIOVASCULAR: Slightly tachycardic rate and regular rhythm. 3/6 holosystolic murmur appreciated. RESPIRATORY: No accessory muscle use. Clear to auscultation. Breath sounds equal bilaterally. MUSCULOSKELETAL: No clubbing or cyanosis. No edema. NEUROLOGICAL: Awake and alert. Normal speech. Laboratory Laboratory Tests Test 08/18/17 13:15 08/19/17 03:52 White Blood Count 17.7 TH/MM3 16.5 TH/MM3 Red Blood Count 2.44 MIL/MM3 2.29 MIL/MM3 Hemoglobin 7.6 GM/DL 7.2 GM/DL Hematocrit 22.9 % 21.6 % Mean Corpuscular Volume 94.0 FL 94.4 FL Mean Corpuscular Hemoglobin 31.1 PG 31.5 PG Mean Corpuscular Hemoglobin Concent 33.0 % 33.4 % Red Cell Distribution Width 28.5 % 27.9 % Platelet Count 113 TH/MM3 94 TH/MM3 Mean Platelet Volume 9.3 FL 9.1 FL Neutrophils (%) (Auto) 82.4 % 84.2 % Lymphocytes (%) (Auto) 9.0 % 6.2 % Monocytes (%) (Auto) 5.3 % 5.9 % Eosinophils (%) (Auto) 0.3 % 0.7 % Basophils (%) (Auto) 3.0 % 3.0 % Neutrophils # (Auto) 14.6 TH/MM3 13.9 TH/MM3 Lymphocytes # (Auto) 1.6 TH/MM3 1.0 TH/MM3 Monocytes # (Auto) 0.9 TH/MM3 1.0 TH/MM3 Eosinophils # (Auto) 0.1 TH/MM3 0.1 TH/MM3 Basophils # (Auto) 0.5 TH/MM3 0.5 TH/MM3 CBC Comment AUTO DIFF AUTO DIFF Differential Total Cells Counted 100 Neutrophils % (Manual) 72 % Band Neutrophils % 8 % Lymphocytes % 10 % Monocytes % 3 % Basophils % 4 % Neutrophils # (Manual) 14.7 TH/MM3 Myelocytes 1 % Promyelocytes 2 % Nucleated Red Blood Cells 6 /100 WBC Differential Comment FINAL DIFF MANUAL Atypical Lymphocytes % Platelet Estimate LOW Platelet Morphology Comment NORMAL Basophilic Stippling FAINT Tear Drop Cells 2+ Ovalocytes 1+ Keratocytes OCC Blood Urea Nitrogen 32 MG/DL 32 MG/DL Creatinine 1.30 MG/DL 1.19 MG/DL Random Glucose 94 MG/DL 110 MG/DL Albumin 3.5 GM/DL 3.6 GM/DL Calcium Level 8.3 MG/DL 8.3 MG/DL Phosphorus Level 3.5 MG/DL 3.7 MG/DL Sodium Level 141 MEQ/L 140 MEQ/L Potassium Level 4.0 MEQ/L 3.9 MEQ/L Chloride Level 108 MEQ/L 108 MEQ/L Carbon Dioxide Level 24.4 MEQ/L 23.8 MEQ/L Anion Gap 9 MEQ/L 8 MEQ/L Estimat Glomerular Filtration Rate 54 ML/MIN 60 ML/MIN Magnesium Level 1.8 MG/DL Imaging Last Impressions CT Angiography 08/16/17946 Signed Impressions: Service Date/Time: Wednesday, August 16, 2017 10:54 - CONCLUSION: 1. No evidence of pulmonary embolism. 2. Minimal atelectasis in the posterior left lower lobe. 3. Coronary artery calcifications and mild cardiomegaly. Tahir Gutiérrez MD Chest X-Ray 08/16/1743 Signed Impressions: Service Date/Time: Wednesday, August 16, 2017 09:49 - CONCLUSION: No acute disease. Tahir Gutiérrez MD (Jakob Jack) Assessment and Plan Assessment and Plan 72-year-old male with past medical history of HLD, myelofibrosis, DVT/PE, HTN who presented after an episode of tachycardia. SVT: Metoprolol added, but unable to be titrated due to BP and patient with recurrent SVT episode during admission. Electrophysiology consulted. Cardiomyopathy: Echocardiogram showed new ejection fraction reduced at 25-30%. Ischemic workup with Lexiscan today. Unable to add DIANA or ARB at this time secondary to low BP. Valvular heart disease: Moderate to severe , mild to moderate MR, moderate to severe TR. (Jakob Jack) Assessment and Plan recurrent SVT. cont BB. EP consulted. ? EPS ablation CM - doug negative. nonischemic likely valvular heart disease - low gradient aortic stenosis. allow recovery. we can schedule dobutamine echo as an outpatient to evaluate if reduced ADDY due to cardiomyopathy or severe . If EP plans medical mgt, then ok for DC tomorrow and FU with me appreciate dr oliver input on +/- LifeVest SM (Otis Castro MD) Jakob Jack Aug 19, 2017 08:04 Otis Castro MD Aug 19, 2017 18:06
[2017-08-19 08:14] LABS: BANDS 5 % (0-6); BASOPHILS 2 % (0-2); CORRECTED NUCLEATED RBC 4 /100 WBC (0-0); METAMYELOCYTES 2 % (0-1); MONOCYTES 5 % (0-8); NEUTROPHIL # MANUAL DIFF 13.9 TH/MM3 (1.8-7.7); NUCLEATED RED BLOOD CELL 4 (0-0); POLYS (SEG NEUTROPHILS) 77 % (16-70)
[2017-08-19 08:15] LABS: LYMPHOCYTES 8 % (9-44)
[2017-08-19 08:16] LABS: KERATOCYTES OCC (NORMAL); OVALOCYTES 1+ (NORMAL)
[2017-08-19] MEDS ORDERED: PILL SPLITTER OTHER PRN (08:30)
[2017-08-19] MEDS: METOPROLOL TARTRATE 25 MG TAB PO SCH ×2 (09:00→19:44)
[2017-08-19] MEDS: RIVAROXABAN 20 MG TAB PO SCH (09:05)
[2017-08-19] MEDS: PRAVASTATIN SOD 20 MG TAB PO SCH (09:05)
[2017-08-19] MEDS: ALLOPURINOL 100 MG TAB PO SCH (09:05)
[2017-08-19] MEDS ORDERED: REGADENOSON INJ 0.4 MG/5 ML SYR ONE (13:19)
--- NOTE | 2017-08-19 13:27 | EKG ---
Date Performed: 08/18/2017 Time Performed: 09:34:35 PTAGE: 72 years EKG: SUPRAVENTRICULAR TACHYCARDIA LEFT AXIS DEVIATION DIFFUSE ST DEPRESSION SUGGESTIVE OF ISCHEM IA ABNORMAL ECG PREVIOUS TRACING : 08/16/2017 19.48 DOCTOR: Dayo Dillon Interpretating Date/Time 08/19/2017 13:27:03
--- NOTE | 2017-08-19 13:30 | EKG ---
Date Performed: 08/18/2017 Time Performed: 09:39:05 PTAGE: 72 years EKG: SINUS TACHYCARDIA VS ATRIAL FLUTTER WITH 2:1 CONDUCTION INCOMPLETE RIGHT BUNDLE BRANCH BLOC K ABNORMAL ECG Compared to PREVIOUS TRACING , the heart rate is exactly half of the prior tracing suggesting the ronnell or tracing had 1:1 conduction and now is 2:1 conduction. PREVIOUS TRACIN08/18/2017 09.34 DOCTOR: Dayo Dillon Interpretating Date/Time 08/19/2017 13:28:33
--- NOTE | 2017-08-19 15:07 | RADRPT ---
EXAM DATE/TIME: 08/19/2017 12:55 [facility] COMPARISON: No previous studies available for comparison. INDICATIONS : Shortness of breath. Two seperate episodes of SVT. Congestive heart failure. DOSE: 25.8 mCi Tc99m Myoview at stress. 8.5 mCi Tc99m Myoview at rest. 0.4 mg Lexiscan STRESS SYMPTOMS: Neck pain. EJECTION FRACTION: 26% MEDICAL HISTORY : Cardiomyopathy. SURGICAL HISTORY : None. ENCOUNTER: Initial ACUITY: 1 day PAIN SCALE: 0/10 LOCATION: chest TECHNIQUE: The patient underwent pharmacologic stress with infusion of prescribed dose. Continuous ECG tracing was monitored during stress. Gated SPECT imaging was performed after stress and conventional SPECT i maging was performed at rest. The examination was performed on a SPECT/CT scanner, both attenuation and non-corrected datasets were reviewed. FINDINGS: DISTRIBUTION: The maximum perfused segment at stress is in the septal wall. PERFUSION STUDY: The pattern of perfusion at stress is within normal limits. GATED STUDY: The inferior/septal wall is somewhat dyskinetic. There is global hypokinesis. CONCLUSION: 1. No evidence to suggest ischemic myocardial changes. 2. Dyskinesia of the inferior septal wall and global hypokinesis. 3. Reduced cardiac ejection fraction 26%. RISK CATEGORY: Low Bryson Perez MD on August 19, 2017 at 15:04 Board Certified Radiologist. This report was verified electronically.
--- NOTE | 2017-08-19 15:30 | PD.ONC.PN ---
Subjective Subjective Remarks Afebrile overnight. Just back from nuclear medicine. eating an apple. really hoping to speak with the metal casket maker and go home soon. Objective Data Date Time Temp Pulse Resp B/P (MAP) Pulse Ox O2 Delivery O2 Flow Rate FiO2 08/19/17 12:00 97.8 110 28 101/11 (41) 96 08/19/17 11:00 110 36 126/65 (85) 100 08/19/17 10:00 110 22 119/71 (87) 100 08/19/17 09:00 98.0 110 23 100/59 (73) 100 08/19/17 08:51 99 21 08/19/17 08:40 98.9 110 20 106/65 (79) 100 08/19/17 08:40 98.9 110 20 106/65 100 08/19/17 08:13 97.7 111 18 115/66 100 08/19/17 08:00 98.0 110 20 115/66 (82) 100 08/19/17 04:00 98.3 110 16 98/63 (75) 96 08/19/17 00:00 98.3 109 26 113/62 (79) 99 08/19/17 00:00 109 08/18/17 23:39 100 21 08/18/17 20:00 98.4 111 20 101/60 (74) 100 08/18/17 18:00 98.8 111 16 88/51 (63) 100 08/18/17 16:00 98.4 110 16 101/56 (71) 100 08/19/17 08/19/17 08/19/17 07:00 15:00 23:00 Intake Total 0 ml 410 ml Output Total 200 ml Balance -200 ml 410 ml Result Diagram: 08/19/17 0352 08/19/17 0352 Laboratory Results Laboratory Tests Test 08/19/17 03:52 White Blood Count 16.5 TH/MM3 Red Blood Count 2.29 MIL/MM3 Hemoglobin 7.2 GM/DL Hematocrit 21.6 % Mean Corpuscular Volume 94.4 FL Mean Corpuscular Hemoglobin 31.5 PG Mean Corpuscular Hemoglobin Concent 33.4 % Red Cell Distribution Width 27.9 % Platelet Count 94 TH/MM3 Mean Platelet Volume 9.1 FL Neutrophils (%) (Auto) 84.2 % Lymphocytes (%) (Auto) 6.2 % Monocytes (%) (Auto) 5.9 % Eosinophils (%) (Auto) 0.7 % Basophils (%) (Auto) 3.0 % Neutrophils # (Auto) 13.9 TH/MM3 Lymphocytes # (Auto) 1.0 TH/MM3 Monocytes # (Auto) 1.0 TH/MM3 Eosinophils # (Auto) 0.1 TH/MM3 Basophils # (Auto) 0.5 TH/MM3 CBC Comment AUTO DIFF Differential Total Cells Counted 100 Neutrophils % (Manual) 77 % Band Neutrophils % 5 % Lymphocytes % 8 % Monocytes % 5 % Eosinophils % 1 % Basophils % 2 % Neutrophils # (Manual) 13.9 TH/MM3 Metamyelocytes 2 % Nucleated Red Blood Cells 4 /100 WBC Differential Comment FINAL DIFF MANUAL Atypical Lymphocytes % Platelet Estimate LOW Platelet Morphology Comment NORMAL Basophilic Stippling FAINT Ovalocytes 1+ Keratocytes OCC Blood Urea Nitrogen 32 MG/DL Creatinine 1.19 MG/DL Random Glucose 110 MG/DL Albumin 3.6 GM/DL Calcium Level 8.3 MG/DL Phosphorus Level 3.7 MG/DL Magnesium Level 1.8 MG/DL Sodium Level 140 MEQ/L Potassium Level 3.9 MEQ/L Chloride Level 108 MEQ/L Carbon Dioxide Level 23.8 MEQ/L Anion Gap 8 MEQ/L Estimat Glomerular Filtration Rate 60 ML/MIN Imaging Studies Last 24 hours Impressions Myocardial Perfusion Scan Nuc Med 08/19/17 0000 Signed Impressions: Service Date/Time: July 12:55 - CONCLUSION: 1. No evidence to suggest ischemic myocardial changes. 2. Dyskinesia of the inferior septal wall and global hypokinesis. 3. Reduced cardiac ejection fraction 26%%. RISK CATEGORY: Low Bryson Perez MD Administered Medications Medications (Trade) Dose Ordered Sig/Ellie Route PRN Reason Start Time Stop Time Status Last Admin Dose Admin Allopurinol (Zyloprim) 100 mg DAILY PO 08/18/17 09:00 08/19/17 09:05 Rivaroxaban (Xarelto) 20 mg DAILY PO 08/17/17 10:00 08/19/17 09:05 Pravastatin Sodium (Pravachol) 20 mg DAILY PO 08/17/17 10:00 08/19/17 09:05 Sodium Chloride 250 ml @ 15 mls/hr ONCE ONCE IV 08/19/17 00:00 08/19/17 16:39 08/19/17 00:00 Objective Remarks GENERAL: Middle aged male, sitting up in bed eating an apple in nad. SKIN: Warm and dry. HEAD: Normocephalic. EYES: No injection or drainage. NECK: Supple, trachea midline. CARDIOVASCULAR: +S1/S2, tachy RESPIRATORY: Breath sounds equal bilaterally. No accessory muscle use. GASTROINTESTINAL: Abdomen soft, non-tender, nondistended. EXTREMITIES: No cyanosis NEUROLOGICAL: awake and alert. normal speech. Assessment/Plan Problem List: (1) Chronic myeloproliferative disorder ICD Codes: D47.1 - Chronic myeloproliferative disease Plan: ++ NEVAEH-2 mutation. 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 --bone marrow biopsy in 2013 showed a chronic myeloproliferative disorder with 3 + myelofibrosis. --recently developed abdominal pain and spleen size has increased to 24 cm. --started Jakafi about a month ago. (on hold during hospitalization) -- doubt that the Jakafi or myelofibrosis is causing the supraventricular tachycardia. (2) Dysrhythmia, cardiac ICD Codes: I49.9 - Cardiac arrhythmia, unspecified Status: Acute Plan: --cardiology following. --had similar episode a few months ago when he had a pulmonary embolism. --now has recurrent SVT. --given adenosine in the emergency room. 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 --recently had recurrent deep venous thrombosis and small pulmonary emboli [place]. --has chronic left lower extremity edema, but no apparent recurrent clot at this time. Assessment 72y/o male with CMPD admitted with SVT Plan 1. monitor CBC 2. agree with 1 unit pRBC 3. continue supportive care. Attending Statement The exam, history, and the medical decision-making described in the above note were completed with the assistance of the mid-level provider. I reviewed and agree with the findings presented. I attest that I had a [id number] encounter with the patient on the same day, and personally performed and documented my assessment and findings in the medical record. Pt transferred to ICU due to recurrent SVT. Hgb trended lower and he is going to receive 1u PRBC. Continue to monitor CBC. Can be d/c once clear by cardiology. Problem Qualifiers (1) Dysrhythmia, cardiac: Qualified Codes: I49.9 - Cardiac arrhythmia, unspecified Kandy Schumacher Aug 19, 2017 15:29 Anurag De Leon MD Aug 19, 2017 15:57
--- NOTE | 2017-08-19 19:15 | HHI.PR ---
Subjective Remarks Denies cp/sob Afebrile. Objective Vitals Vital Signs Date Time Temp Pulse Resp B/P (MAP) Pulse Ox O2 Delivery O2 Flow Rate FiO2 08/19/17 18:00 114 28 122/69 (86) 08/19/17 17:00 112 23 105/60 (75) 08/19/17 16:00 112 23 110/78 (89) 08/19/17 15:00 112 29 108/71 (83) 08/19/17 14:38 112 21 114/65 (81) 93 08/19/17 12:00 97.8 110 28 101/11 (41) 96 08/19/17 11:00 110 36 126/65 (85) 100 08/19/17 10:00 110 22 119/71 (87) 100 08/19/17 09:00 98.0 110 23 100/59 (73) 100 08/19/17 08:51 99 21 08/19/17 08:40 98.9 110 20 106/65 (79) 100 08/19/17 08:40 98.9 110 20 106/65 100 08/19/17 08:13 97.7 111 18 115/66 100 08/19/17 08:00 98.0 110 20 115/66 (82) 100 08/19/17 04:00 98.3 110 16 98/63 (75) 96 08/19/17 00:00 98.3 109 26 113/62 (79) 99 08/19/17 00:00 109 08/18/17 23:39 100 21 08/18/17 20:00 98.4 111 20 101/60 (74) 100 I/O 08/18/17 08/18/17 08/18/17 08/19/17 08/19/17 08/19/17 06:59 14:59 22:59 06:59 14:59 22:59 Intake Total 230 ml 580 ml 0 ml 410 ml 600 ml Output Total 1100 ml 200 ml 400 ml Balance 230 ml -520 ml -200 ml 410 ml 200 ml Intake Oral 230 ml 580 ml 0 ml 600 ml Packed Cells 400 ml Blood Product IV Normal Saline Flush 10 ml Output Urine Total 1100 ml 200 ml 400 ml # Voids 2 4 Result Diagram: 08/19/17 0352 08/19/17 0352 Imaging Last Impressions Myocardial Perfusion Scan Nuc Med 08/19/17 0000 Signed Impressions: Service Date/Time: July 12:55 - CONCLUSION: 1. No evidence to suggest ischemic myocardial changes. 2. Dyskinesia of the inferior septal wall and global hypokinesis. 3. Reduced cardiac ejection fraction 26%%. RISK CATEGORY: Low Bryson Perez MD CT Angiography 08/16/17 0947 Signed Impressions: Service Date/Time: Wednesday, August 16, 2017 10:54 - CONCLUSION: 1. No evidence of pulmonary embolism. 2. Minimal atelectasis in the posterior left lower lobe. 3. Coronary artery calcifications and mild cardiomegaly. Tahir Gutiérrez MD Chest X-Ray 08/16/1743 Signed Impressions: Service Date/Time: Wednesday, August 16, 2017 09:49 - CONCLUSION: No acute disease. Tahir Gutiérrez MD Objective Remarks GENERAL: Patient walking in room. Appears uncomfortable.. Alert and oriented. Appears comfortable after heart rate improved. SKIN: Warm and dry. HEAD: Normocephalic. EYES: No scleral icterus. No injection or drainage. NECK: Supple, trachea midline. No JVD. CARDIOVASCULAR: Tachycardic. RESPIRATORY: Breath sounds equal bilaterally. No accessory muscle use. GASTROINTESTINAL: Abdomen soft, non-tender, nondistended. MUSCULOSKELETAL: No cyanosis, or edema. BACK: Nontender without obvious deformity. No CVA tenderness. Medications and IVs Current Medications Medications (Trade) Dose Ordered Sig/Ellie Route Start Time Stop Time Status Last Admin (Tylenol) 650 mg Q4H PRN PO 08/16/17 13:45 (Zofran Inj) 4 mg Q6H PRN IVP 08/16/17 14:00 ([place] 5-325 Mg) 1 tab Q4H PRN PO 08/16/17 13:45 ([place] 7.5-325 Mg) 1 tab Q4H PRN PO 08/16/17 13:45 (Morphine Inj) 4 mg Q3H PRN IV PUSH 08/16/17 13:45 (Narcan Inj) 0.4 mg UNSCH PRN IV PUSH 08/16/17 13:45 (Zyloprim) 100 mg DAILY PO 08/18/17 09:00 08/19/17 09:05 (Xarelto) 20 mg DAILY PO 08/17/17 10:00 08/19/17 09:05 (Pravachol) 20 mg DAILY PO 08/17/17 10:00 08/19/17 09:05 (Lopressor) 37.5 mg Q12HR PO 08/19/17 09:00 08/19/17 19:44 (Pill Splitter) 1 ea UNSCH PRN OTHER 08/19/17 08:30 A/P Assessment and Plan 72 years old male with history of myelofibrosis came with tachycardia and diaphoresis 1. SVT Resolved IV metoprolol. Cardiology consulted. appreciate recommendations. ecurrent SVT. cont BB. EP consulted. ? EPS ablation CM - doug negative. 2.Heart murmur. Echo The left ventricular systolic function is severely reduced with an estimated ejection fraction in the range of 25-30%. The right ventricle is moderately dilated. LV systolic function decreased withestimated EF 30-35%. Anterior and septal hypokinesis The right ventricular systoilc function is moderately decreased. RV is moderately to severelydilated The left atrial size is moderately to severely dilated. The right atrial size is moderately to severely dilated. [id number] mitral valve regurgitation. Diffuse calcification of the aortic valve. moderate to severe aortic stenosis Trace aortic valve regurgitation. There is moderate to severe tricuspid valve regurgitation. The estimated pulmonary arterial pressure is 54.9 mmHg. No pulmonary valve regurgitation. There is no pericardial effusion. Cardiology following. Fu recommendations. 3. History of pulmonary embolism. CT pulmonary gram-negative. 4. Leukocytosis, Anemia and thrombocytosis due to myelofibrosis Hematology following. Leukocytosis trending down. Monitor CBC 5. DVT prophylaxis. Heparin subcu Discharge Planning Pending EP consult. Mode Iverson MD Aug 19, 2017 19:15
[2017-08-20] VITALS: BP 91/58; PULSE 113; RESP 20; TEMP 98.7; O2SAT 95
[2017-08-20 04:00] VITALS: BP 107/65; PULSE 110; RESP 28; TEMP 98.2
[2017-08-20 08:00] VITALS: BP 105/73; PULSE 111; RESP 24; TEMP 98.3
[2017-08-20] MEDS: METOPROLOL TARTRATE 25 MG TAB PO SCH (08:13)
[2017-08-20] MEDS: RIVAROXABAN 20 MG TAB PO SCH (08:13)
[2017-08-20] MEDS: PRAVASTATIN SOD 20 MG TAB PO SCH (08:13)
[2017-08-20] MEDS: ALLOPURINOL 100 MG TAB PO SCH (08:13)
--- NOTE | 2017-08-20 08:13 | MB ---
cc: Luis Irving MD DATE: 08/19/2017 REASON FOR CONSULTATION: Supraventricular tachyarrhythmia. HISTORY OF PRESENT ILLNESS: Mr. Hardy is a 72-year-old gentleman with history of a pulmonary embolism, myelofibrosis, developed a couple of months ago an episode of supraventricular tachyarrhythmia that terminated with adenosine. Again, it showed up yesterday at the ER with supraventricular tachyarrhythmia, rate which was around 215 beats per minute. ____ terminate with adenosine. Was admitted. Since then the patient back into sinus rhythm. I was consulted for further evaluation and management. The chart was reviewed. The patient was evaluated. ALLERGIES: NONE REPORTED. SOCIAL HISTORY: The patient denies smoking and drinking. FAMILY HISTORY: Noncontributory to his current medical condition. MEDICATIONS: Currently, the patient is on [place]. He is on allopurinol, metoprolol 50 mg q. 12 hours. He is on Pravachol. He is on Xarelto. REVIEW OF SYSTEMS: He referred no chest pain. He referred shortness of breath on activity, but no fever. PHYSICAL EXAMINATION: GENERAL: Alert, fully oriented. VITAL SIGNS: His blood pressure 122/68, pulse is high 114, respiratory rate around 20 to 22. LUNGS: Ventilated. CARDIOVASCULAR: S1, S2, tachycardic. There is systolic ejection murmur 1-2/6. ABDOMEN: Soft. No masses. EXTREMITIES: No edema. LABORATORY DATA: Electrocardiogram during hospitalization shows supraventricular tachyarrhythmia, right bundle branch block. Subsequent electrocardiogram shows sinus rhythm with right bundle branch block, sinus tachycardia. Labs Hemoglobin is 7.2. Potassium is 3.9, creatinine is 1.19. ASSESSMENT AND RECOMMENDATIONS: Mr. Hardy has type A tachyarrhythmia that resolved with adenosine. Apparently, there is a short ____ tachyarrhythmia. ____ tachycardia is suspected. This gentleman is going to need an electrophysiology study. But at this point, his hemoglobin is 7.2. He is currently sinus tachycardia, most likely due to low hemoglobin. Further evaluation will be necessary. This gentleman is on metoprolol. Most likely the anemia will need to be ____ first and then further decision will be taken. I discussed the case extensively with him. They concur with current management. This gentleman will need a possible blood transfusion. He can be discharged home. I will see this gentleman at my office and then electrophysiology study and ablation can be scheduled as an outpatient. Luis Irving MD HS/rt , 07:58 PM , 08:20 PM
--- NOTE | 2017-08-20 08:58 | PD.CARD.PN ---
Subjective Subjective Remarks No further issues overnight and feels well. Wants to go home today. No chest pain, shortness of breath, palpitations. Was seen by EP earlier today and cleared for discharge. (Jakob Jack) Objective Medications Current Medications Medications (Trade) Dose Ordered Sig/Ellie Route Start Time Stop Time Status Last Admin (Tylenol) 650 mg Q4H PRN PO 08/16/17 13:45 (Zofran Inj) 4 mg Q6H PRN IVP 08/16/17 14:00 ([place] 5-325 Mg) 1 tab Q4H PRN PO 08/16/17 13:45 ([place] 7.5-325 Mg) 1 tab Q4H PRN PO 08/16/17 13:45 (Morphine Inj) 4 mg Q3H PRN IV PUSH 08/16/17 13:45 (Narcan Inj) 0.4 mg UNSCH PRN IV PUSH 08/16/17 13:45 (Zyloprim) 100 mg DAILY PO 08/18/17 09:00 08/20/17 08:13 (Xarelto) 20 mg DAILY PO 08/17/17 10:00 08/20/17 08:13 (Pravachol) 20 mg DAILY PO 08/17/17 10:00 08/20/17 08:13 (Lopressor) 37.5 mg Q12HR PO 08/19/17 09:00 08/20/17 08:13 (Pill Splitter) 1 ea UNSCH PRN OTHER 08/19/17 08:30 Vital Signs / I&O Vital Signs Date Time Temp Pulse Resp B/P (MAP) Pulse Ox O2 Delivery O2 Flow Rate FiO2 08/20/17 08:00 111 08/20/17 08:00 98.3 111 24 105/73 (84) 08/20/17 04:00 98.2 110 28 107/65 (79) 08/20/17 04:00 110 08/20/17 00:00 98.7 113 20 91/58 (69) 95 08/20/17 00:00 113 08/19/17 20:00 113 08/19/17 20:00 98.5 113 27 113/65 (81) 08/19/17 18:00 114 28 122/69 (86) 08/19/17 17:00 112 23 105/60 (75) 08/19/17 16:00 112 23 110/78 (89) 08/19/17 15:00 112 29 108/71 (83) 08/19/17 14:38 112 21 114/65 (81) 93 08/19/17 12:00 97.8 110 28 101/11 (41) 96 08/19/17 11:00 110 36 126/65 (85) 100 08/19/17 10:00 110 22 119/71 (87) 100 08/19/17 09:00 98.0 110 23 100/59 (73) 100 I/O 08/19/17 08/19/17 08/19/17 08/20/17 08/20/17 08/20/17 07:00 15:00 23:00 07:00 15:00 23:00 Intake Total 0 ml 410 ml 600 ml 240 ml Output Total 200 ml 400 ml 400 ml Balance -200 ml 410 ml 200 ml -160 ml Intake Oral 0 ml 600 ml 240 ml Packed Cells 400 ml Blood Product IV Normal Saline Flush 10 ml Output Urine Total 200 ml 400 ml 400 ml # Voids 4 # Bowel Movements 0 Physical Exam GENERAL: Well-developed well-nourished. In no acute distress. NECK: No carotid bruits. No JVD. CARDIOVASCULAR: Slightly tachycardic rate and regular rhythm. 3/6 holosystolic murmur appreciated. RESPIRATORY: No accessory muscle use. Clear to auscultation. Breath sounds equal bilaterally. MUSCULOSKELETAL: No clubbing or cyanosis. No edema. NEUROLOGICAL: Awake and alert. Normal speech. Imaging Last Impressions Myocardial Perfusion Scan Nuc Med 08/19/17 0000 Signed Impressions: Service Date/Time: July 12:55 - CONCLUSION: 1. No evidence to suggest ischemic myocardial changes. 2. Dyskinesia of the inferior septal wall and global hypokinesis. 3. Reduced cardiac ejection fraction 26%%. RISK CATEGORY: Low Bryson Perez MD CT Angiography 08/16/17 0947 Signed Impressions: Service Date/Time: Wednesday, August 16, 2017 10:54 - CONCLUSION: 1. No evidence of pulmonary embolism. 2. Minimal atelectasis in the posterior left lower lobe. 3. Coronary artery calcifications and mild cardiomegaly. Tahir Gutiérrez MD Chest X-Ray 08/16/17 0977 Signed Impressions: Service Date/Time: Wednesday, August 16, 2017 09:49 - CONCLUSION: No acute disease. Tahir Gutiérrez MD (Jakob Jack) Assessment and Plan Assessment and Plan 72-year-old male with past medical history of HLD, myelofibrosis, DVT/PE, HTN who presented after an episode of tachycardia. Recurrent SVT: On metoprolol. Electrophysiology consulted, recommended continuing current management and outpatient follow-up with him in 2 weeks for possible EP study and ablation. Cardiomyopathy: Echocardiogram showed new ejection fraction reduced at 25-30%. Probable nonischemic with normal Lexiscan. Unable to add DIANA or ARB at this time secondary to low BP. Low gradient aortic stenosis: With decreased EF, will plan for outpatient dobutamine echo to further evaluate aortic valve. Okay for discharge from cardiology standpoint. (Jakob Jack) Assessment and Plan complicated case tachyarrhythmia - EP following. outpatient EPS cardiomyopathy - nonischemic. acute CHF, well compensated now. no ACEi or ARB due to hypotension. anemia- myelofibrosis. heme/onc following. +/- transfusion. valvular heart disease - low gradient . ? due to cardiomyopathy or true . may need dobutamine echo to differentiate. can coordinate as outpatient. would prefer EPS prior to dobutamine given likelihood of inducing arrhythmia. Clearly not surgical candidate, but may be TAVR candidate, if severe . ok for DC from cardio standpoint. no LifeVest. worried about SVT with tachcyardiac and inappropriate shocks. FU with me in [address] oliver in 1-2 weeks call with questions (Otis Castro MD) Jakob Jack Aug 20, 2017 08:58 Otis Castro MD Aug 20, 2017 09:46
[2017-08-20] MEDS ORDERED: METO25TA3 PO (09:22)
--- NOTE | 2017-08-20 09:24 | PD.ONC.PN ---
Subjective Subjective Remarks Afebrile overnight. Patient sitting up in bed, eating breakfast. eager to go home. he was just cleared by cardiology this AM. Objective Data Date Time Temp Pulse Resp B/P (MAP) Pulse Ox O2 Delivery O2 Flow Rate FiO2 08/20/17 08:00 111 08/20/17 08:00 98.3 111 24 105/73 (84) 08/20/17 04:00 98.2 110 28 107/65 (79) 08/20/17 04:00 110 08/20/17 00:00 98.7 113 20 91/58 (69) 95 08/20/17 00:00 113 08/19/17 20:00 113 08/19/17 20:00 98.5 113 27 113/65 (81) 08/19/17 18:00 114 28 122/69 (86) 08/19/17 17:00 112 23 105/60 (75) 08/19/17 16:00 112 23 110/78 (89) 08/19/17 15:00 112 29 108/71 (83) 08/19/17 14:38 112 21 114/65 (81) 93 08/19/17 12:00 97.8 110 28 101/11 (41) 96 08/19/17 11:00 110 36 126/65 (85) 100 08/19/17 10:00 110 22 119/71 (87) 100 08/20/17 08/20/17 08/20/17 07:00 15:00 23:00 Intake Total 240 ml Output Total 400 ml Balance -160 ml Result Diagram: 08/19/17 0352 08/19/17 0352 Administered Medications Medications (Trade) Dose Ordered Sig/Ellie Route PRN Reason Start Time Stop Time Status Last Admin Dose Admin Allopurinol (Zyloprim) 100 mg DAILY PO 08/18/17 09:00 08/20/17 08:13 Rivaroxaban (Xarelto) 20 mg DAILY PO 08/17/17 10:00 08/20/17 08:13 Pravastatin Sodium (Pravachol) 20 mg DAILY PO 08/17/17 10:00 08/20/17 08:13 Metoprolol Tartrate (Lopressor) 37.5 mg Q12HR PO 08/19/17 09:00 08/20/17 08:13 Objective Remarks GENERAL: Pleasant elderly male, sitting up in bed in nad. SKIN: Warm and dry. HEAD: Normocephalic. EYES: No injection or drainage. NECK: Supple, trachea midline. CARDIOVASCULAR: +S1/S2, tachy RESPIRATORY: Breath sounds equal bilaterally. No accessory muscle use. GASTROINTESTINAL: Abdomen soft, non-tender, nondistended. EXTREMITIES: No cyanosis NEUROLOGICAL: awake and alert. normal speech. Assessment/Plan Problem List: (1) Chronic myeloproliferative disorder ICD Codes: D47.1 - Chronic myeloproliferative disease Plan: ++ NEVAEH-2 mutation. 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 --bone marrow biopsy in 2013 showed a chronic myeloproliferative disorder with 3 + myelofibrosis. --recently developed abdominal pain and spleen size has increased to 24 cm. --started Jakafi about a month ago. (on hold during hospitalization) -- doubt that the Jakafi or myelofibrosis is causing the supraventricular tachycardia. (2) Dysrhythmia, cardiac ICD Codes: I49.9 - Cardiac arrhythmia, unspecified Status: Acute Plan: --08/20: cleared for d/c by cardiology --had similar episode a few months ago when he had a pulmonary embolism. --now has recurrent SVT. --given adenosine in the emergency room. 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 --recently had recurrent deep venous thrombosis and small pulmonary emboli [place] --has chronic left lower extremity edema, but no apparent recurrent clot at this time. Assessment 72y/o male with CMPD admitted with SVT Plan 1. check CBC today 2. clear for discharge. 3. follow up in clinic in 1-2 weeks 4. resume Jakafi tomorrow. Problem Qualifiers (1) Dysrhythmia, cardiac: Qualified Codes: I49.9 - Cardiac arrhythmia, unspecified Kandy Schumacher Aug 20, 2017 09:24
--- NOTE | 2017-08-20 14:54 | HHI.DS ---
Discharge Summary Admission Date Aug 18, 2017 at 11:20 Discharge Date: Aug 20, 2017 Admitting Diagnosis Chest Pain (1) SVT (supraventricular tachycardia) ICD Code: I47.1 - Supraventricular tachycardia (2) Chronic myeloproliferative disorder ICD Code: D47.1 - Chronic myeloproliferative disease (3) History of DVT (deep vein thrombosis) ICD Code: Z86.718 - Personal history of other venous thrombosis and embolism Procedures Lexiscan Brief History - From Admission 72 years old male with history of a svt/PE 2 years ogo, and myelofibrosis recently started treatment with Dr. Keane, came to the ED after he had sudden short of breath palpitation he was found to be in 120 tachycardia mostly SVT he was given a dose of adenosine which brought down his heart rate to normal, I consulted cardiology who was in the room my nurse at the time I saw the patient, patient was describing his episodes as feeling weird, and short of breath, patient stated he feels right back to normal after the adenosine. Patient had a discussion with the cardiology plan on doing the 2D echo, verify his murmur most likely mitral regurg on auscultation, if that is not revealing major issue, then patient can be discharged on beta-philipp and Holter monitor to follow-up with cardiology CBC/BMP: 08/19/17 0352 08/19/17 0352 Significant Findings Laboratory Tests Test 08/18/17 13:15 08/19/17 03:52 White Blood Count 17.7 TH/MM3 (4.0-11.0) 16.5 TH/MM3 (4.0-11.0) Red Blood Count 2.44 MIL/MM3 (4.50-5.90) 2.29 MIL/MM3 (4.50-5.90) Hemoglobin 7.6 GM/DL (13.0-17.0) 7.2 GM/DL (13.0-17.0) Hematocrit 22.9 % (39.0-51.0) 21.6 % (39.0-51.0) Red Cell Distribution Width 28.5 % (11.6-17.2) 27.9 % (11.6-17.2) Platelet Count 113 TH/MM3 (150-450) 94 TH/MM3 (150-450) Neutrophils (%) (Auto) 82.4 % (16.0-70.0) 84.2 % (16.0-70.0) Basophils (%) (Auto) 3.0 % (0.0-2.0) 3.0 % (0.0-2.0) Neutrophils # (Auto) 14.6 TH/MM3 (1.8-7.7) 13.9 TH/MM3 (1.8-7.7) Basophils # (Auto) 0.5 TH/MM3 (0-0.2) 0.5 TH/MM3 (0-0.2) Neutrophils % (Manual) 72 % (16-70) 77 % (16-70) Band Neutrophils % 8 % (0-6) Basophils % 4 % (0-2) Neutrophils # (Manual) 14.7 TH/MM3 (1.8-7.7) 13.9 TH/MM3 (1.8-7.7) Myelocytes 1 % (0-0) Promyelocytes 2 % (0-0) Nucleated Red Blood Cells 6 /100 WBC (0-0) 4 /100 WBC (0-0) Platelet Estimate LOW (NORMAL) LOW (NORMAL) Basophilic Stippling FAINT (NORMAL) FAINT (NORMAL) Tear Drop Cells 2+ (NORMAL) Ovalocytes 1+ (NORMAL) 1+ (NORMAL) Blood Urea Nitrogen 32 MG/DL (7-18) 32 MG/DL (7-18) Calcium Level 8.3 MG/DL (8.5-10.1) 8.3 MG/DL (8.5-10.1) Chloride Level 108 MEQ/L (98-107) 108 MEQ/L (98-107) Estimat Glomerular Filtration Rate 54 ML/MIN (>89) 60 ML/MIN (>89) Lymphocytes (%) (Auto) 6.2 % (9.0-44.0) Monocytes # (Auto) 1.0 TH/MM3 (0-0.9) Lymphocytes % 8 % (9-44) Metamyelocytes 2 % (0-1) Random Glucose 110 MG/DL (74-106) PE at Discharge GENERAL: Patient walking in room. Appears uncomfortable.. Alert and oriented. Appears comfortable after heart rate improved. SKIN: Warm and dry. HEAD: Normocephalic. EYES: No scleral icterus. No injection or drainage. NECK: Supple, trachea midline. No JVD. CARDIOVASCULAR: Tachycardic. RESPIRATORY: Breath sounds equal bilaterally. No accessory muscle use. GASTROINTESTINAL: Abdomen soft, non-tender, nondistended. MUSCULOSKELETAL: No cyanosis, or edema. BACK: Nontender without obvious deformity. No CVA tenderness. Hospital Course 72 years old male admitted for Chronic myeloproliferative disorder,History of DVT recurrent SVT,cardiomyopathy 25-30%,Low gradient aortic stenosis Cardiology consulted, As well as EP [employer] echo has been done show EF 25- 30% severe TR and moderate MR moderate to severe left and right atrial size, patient was found to have SVT he had Lexiscan stress test which was negative placed on beta-philipp to follow-up as an outpatient for possible ablation. Hematology oncology consulted for his myeloproliferative disorder recommended some blood transfusions and follow-up as an outpatient, patient to continue on Xarelto for blood thinner Pt Condition on Discharge: Stable Discharge Disposition: Discharge Home Discharge Time: > 30 minutes Discharge Instructions DIET: Follow Instructions for: Heart Healthy Diet Activities you can perform: Weight Bearing as Denisse Other Activity Instructions: fall precautions Follow up Referrals: Cardiology - 1 Week with Luis Irving MD Oncology - 1 Week with Anurag De Leon MD New Medications: Metoprolol Tartrate (Metoprolol Tartrate) 25 Mg Tab 37.5 MG PO Q12HR for svt, #60 TAB Continued Medications: Allopurinol (Allopurinol) 100 Mg Tab 100 MG PO DAILY for Gout, #30 TAB 0 Refills Rivaroxaban (Xarelto) 20 Mg Tab 20 MG PO DAILY for Blood Clot Prevention, TAB 0 Refills Simvastatin (Simvastatin) 10 Mg Tab 10 MG PO DAILY for Cholesterol Management, #30 TAB 0 Refills Tobias Orourke MD Aug 20, 2017 14:53
== END 2017-08-20 10:05 | disposition home or self-care (01) | DRG 308 ==
LOC: NEPE 09:32 → NEDA 11:52 → NEPFCDU 14:05 → HIMW 08-18 09:55 → OBSVTOIN 08-18 11:20
PROVIDERS: ADMIT Hospitalist; ATTEND Hospitalist
DX: I47.1 Supraventricular tachycardia (principal); I50.21 Acute systolic (congestive) heart failure; I42.9 Cardiomyopathy, unspecified; D69.6 Thrombocytopenia, unspecified; I48.92 Unspecified atrial flutter; D47.1 Chronic myeloproliferative disease; I11.0 Hypertensive heart disease with heart failure; D64.9 Anemia, unspecified; E78.5 Hyperlipidemia, unspecified; D72.829 Elevated white blood cell count, unspecified; R16.1 Splenomegaly, not elsewhere classified; I35.0 Nonrheumatic aortic (valve) stenosis; I34.0 Nonrheumatic mitral (valve) insufficiency; I36.1 Nonrheumatic tricuspid (valve) insufficiency; Z86.711 Personal history of pulmonary embolism; Z86.718 Personal history of other venous thrombosis and embolism; Z79.01 Long term (current) use of anticoagulants
CPT/HCPCS: 36430; 71045; 71275; 78452; 80048; 80053; 80069; 82550; 83735; 84484; 85007; 85027; 85610; 85730; 86850; 86900; 86901; 86920; 93005; 93017; 93306; 96360; A9502; G0378; J0153; J1644; J2785; J7040; J7050; P9016; Q9967

== ENCOUNTER 2017-09-15 13:58 | Day surgery (SDC) | payer MEDICARE, OTHER ==
[~2017-09-15] VITALS: Ht 182.9 cm; Wt 81.7 kg
[2017-09-15] VITALS (7 sets, daily range): BP systolic 105–149; BP diastolic 70–94; PULSE 85–117; RESP 16–18; TEMP 98.1–98.2; O2SAT 96–100
[~2017-09-15 13:58] MED LIST: ALLO100T PO; BYST10TA2 PO; JAKAFI PO; METO25TA3 PO; PHENYLEPH/NS 1000 MCG/10 ML SYR IV ONE; PROPOFOL 200 MG/20 ML AMP IV ONE; SIMV10TA PO; TRIA37.53 PO; XARE20TA PO
[2017-09-15] MEDS ORDERED: SODIUM CHLORID 0.9% 500 ML IV PRN (14:30)
[2017-09-15] MEDS ORDERED: LACTATED RINGER'S 1000 ML IV PRN (14:30)
[2017-09-15] MEDS ORDERED: LORazepam 1 MG TAB SL SCH (14:30)
[2017-09-15] MEDS ORDERED: CHLORHEXIDINE GLUCONATE 2 % 1 PACK (2 CLOTHS) TOPICAL PRN (14:30)
[2017-09-15] MEDS ORDERED: POVIDONE IODINE 5% (ANTISEPSIS KIT) 4 APPLICATIONS EACH NARE PRN (14:30)
[2017-09-15] MEDS ORDERED: METOPROLOL TARTRATE 25 MG TAB PO PRN (14:30)
[2017-09-15] MEDS ORDERED: METO25TA3 PO (14:37)
[2017-09-15 14:46] LABS: HEMATOCRIT 30.6 % (39.0-51.0); MEAN CELL VOLUME 91.2 FL (80.0-100.0); MEAN CORPUSCULAR HEMOGLOBIN 29.9 PG (27.0-34.0); MEAN CORPUSCULAR HGB CONC 32.8 % (32.0-36.0); MEAN PLATELET VOLUME 9.1 FL (7.0-11.0); PLATELET COUNT 122 TH/MM3 (150-450); RED BLOOD COUNT 3.35 MIL/MM3 (4.50-5.90); RED CELL DISTRIBUTION WIDTH 25.4 % (11.6-17.2); WHITE BLOOD COUNT 24.2 TH/MM3 (4.0-11.0)
[2017-09-15 15:09] LABS: CALCIUM 8.3 MG/DL (8.5-10.1); CREATININE 1.26 MG/DL (0.60-1.30)
[2017-09-15] MEDS: SODIUM CHLORID 0.9% 500 ML INJ 500 ML IV SCH (15:22)
[2017-09-15 15:29] LABS: INTERNATIONAL NORMALIZED RATIO 1.2 RATIO; PROTHROMBIN TIME - PATIENT 12.2 SEC (9.8-11.6)
[2017-09-15] MEDS ORDERED: HEPARIN-NS/PF FLUSH BAG 1,000 ML IV FLUSH ONE (15:37)
[2017-09-15 16:15] LABS: BANDS 7 % (0-6); CORRECTED NUCLEATED RBC 4 /100 WBC (0-0); METAMYELOCYTES 2 % (0-1); MONOCYTES 5 % (0-8); NEUTROPHIL # MANUAL DIFF 18.6 TH/MM3 (1.8-7.7); NUCLEATED RED BLOOD CELL 4 (0-0); POLYS (SEG NEUTROPHILS) 68 % (16-70)
[2017-09-15 16:17] LABS: LYMPHOCYTES 18 % (9-44); OVALOCYTES 1+ (NORMAL); TEARDROP RBCS 1+ (NORMAL)
--- NOTE | 2017-09-15 17:22 | CATHPROC ---
Patient Name: JASPREET RUANO Study #: [id number] Initial MD: Luis Irving Date of : 1945 Study Date: 09/15/2017 Cardiac Catheterization Report 09/15/2017 5:22:33 PM Financial #: [id number] 1 of 8 Patient Name: JASPREET RUANO Study #: [id number] Initial MD: Luis Irving Date of : 1945 Study Date: 09/15/2017 Entire Case Report Patient Information Patient Name JASPREET RUANO Date of 1945 Age 72 years Financial # [id number] Gender M AlternateID Lab Number 2 Room Number DC06 Height (in) 72.0 Height (cm) 182.9 BSA 2.05 Weight (lbs) 182.2 Weight (kg) 82.8 Patient Address/Phone Number Home Address [facility] Phone Number [phone] [facility] [address] [facility] [id number] Study Information Study Number Admission Scheduled Start Study Start [id number] Sep 15 2017 1:58PM 09/15/2017 Sep 15 2017 3:22PM [place] [facility] Electrophysiology Study Admit Source Facility Department Other [facility] - Education Department Chair Physician and Clinical Staff Initial Luis Hart Scanner Operator Bailey Uribe,RT(R) TECH2 Other Anesthesia, TRAIN CONTROL TECHNICIAN Recorder Tressa Vazquez,SOHEILA Scrub Bassam Cnon,RT(R) Procedures Performed Procedure Location (Site) Vessel Name Ablation Procedure RF Ablation Isthmus Other 09/15/2017 5:22:33 PM Financial #: [id number] 2 of 8 Patient Name: JASPREET RUANO Study #: [id number] Initial MD: Luis Irving Date of : 1945 Study Date: 09/15/2017 Equipment Time Lead Shipper Description Size Mfg Part Number Used/Scraped BIOSENSE STEWART CATHETER, CELSIUS DS, 8MM, F [id number] 16:09 FR 7 Used INC. TYPE QUAD *[id number] 15:36 [employer] PACK, CCL CUSTOM * Used *[id number] 15:36 MEDLINE PACER JIMENEZ, LIMB * 2530 *[id number] Used [id number] 15:36 [employer] BLANKET,WARM AIR CCL * Used *[id number] 15:37 [employer] MED[employer] CATHETER, JSN, QUAD FR 5 Used *[id number] 15:38 [employer] MEDICAL CATHETER, JSN, QUAD FR 5 Used *[id number] 284630 15:38 [employer] MEDICAL CATHETER, JSN, QUAD FR 5 Used *[id number] 599092 15:38 [employer] MEDICAL CATHETER, JSN, QUAD FR 5 Used *[id number] [id number] 15:36 [employer] MEDICAL ELECTRODE KIT, DELROY X SURFACE * Used *[id number] 580760 15:38 [employer] SHEATH, EPS, FR5 FAST CATH FR 5 Used *[id number] 126107 15:38 [employer] SHEATH, EPS, FR5 FAST CATH FR 5 Used *[id number] 404963 15:37 [employer] MED[employer] SHEATH, EPS, FR5 FAST CATH FR 5 Used *[id number] 935204 15:38 [employer] MED[employer] SHEATH, EPS, FR6 FAST CATH FR 6 Used *1285196 390329 15:37 [employer] MED[employer] SHEATH, EPS, FR8 FAST CATH FR 8 Used *[id number] 186540 16:25 [employer] SHEATH, EPS, FR8 SRO 60CM FR 8 Used *[id number] [facility] PAD, ELECTROSURGICAL 15:36 * [id number] *[id number] Used SURGICAL GROUNDING (BLUE) Insurance Information Insurance Payor Medicare Third Democrat Third Democrat Number MEDICARE A B MCRAB History: Allergies Allergy Reaction No Known Allergies History: Risk Factors Hypertension Dyslipidemia Yes Yes Chronic Lung Disease Labs 09/15/2017 5:22:33 PM Financial #: [id number] Patient Name: JASPREET RUANO Study #: [id number] Initial MD: Luis Irving Date of : 1945 Study Date: 8 Hgb (g/dl) Hct (%) RBC (MIL/MM3) WBC (l/cumm) Platelets (thousands) 11.60-17.00 35.00-51.00 4.00-5.90 4.00-11.00 150.00-450.00 10.0 30 3.3 24 122 Glucose (mg/dl) BUN (mg/dl) Creatinine (mg/dl) BUN:Creatinine (1:x) 74.00-106.00 7.00-18.00 0.50-1.30 10.00-20.00 98 35 1.3 26.9 Na (meq/l) K (meq/l) 136.00-145.00 3.50-5.10 141 4.1 INR (PTT:PT) 0.90-1.10 1.2 Medication Medication Total Dose (Bolus/Oral) Medication Total Dosage/Unit 1% XYLOCAINE 40 mL Medications (Bolus/Oral) Medication Time Given Dosage/Unit Administered By Reason 1% XYLOCAINE 09/15/2017 4:00:26 PM 20 mL Luis Irving 20 mL 1% XYLOCAINE given in lab by Luis Irving in Left Groin via Subcutaneous. 1% XYLOCAINE 09/15/2017 4:04:00 PM 20 mL Luis Irving 20 mL 1% XYLOCAINE given in lab by Luis Irving in Right Groin via Subcutaneous. Medication (Drip) Medication Time Given Dosage/Unit Concentration/Unit Diluent (ml) Solution ISUPREL 09/15/2017 4:59:00 PM 4 mcg/min 1 mg 250 NaCl .9 4 mcg/min ISUPREL given in lab by Anesthesia, TRAIN CONTROL TECHNICIAN via Peripheral IV. Pump/Drip Flow = 60 ml/hr using NaCl .9 with a concentration of 1 mg in 250 ml. Ordered by Luis Irving. Reason: As per physicians verbal order. 09/15/2017 5:22:33 PM Financial #: [id number] 4 of 8 Patient Name: JASPREET RUANO Study #: [id number] Initial MD: Luis Irving Date of : 1945 Study Date: 09/15/2017 Initial Case Assessment Cardiovascular HR Rhythm NIBP Chest Pain 114 aflttr 135/77 0 Edema Present Skin color Skin None Normal Warm Dry Circulatory - Right Pulses Dorsalis Pedis 1 Scale (0,1,2,3,4,d) Circulatory - Left Pulses Dorsalis Pedis 2 Scale (0,1,2,3,4,d) Circulatory - Lower Extremities Color Lower Right Color Lower Left Normal Normal Neurological State Oriented to time-place- Alert Moves all extremities person Respiration - General Respiration Rate SpO2 (%) O2 (lpm) (B/min) 18 100 4 09/15/2017 5:22:33 PM Financial #: [id number] 5 of 8 Patient Name: JASPREET RUANO Study #: [id number] Initial MD: Luis Irving Date of : 1945 Study Date: 09/15/2017 Final Case Assessment Cardiovascular HR Rhythm NIBP Chest Pain 90 sr 99/5 0 Edema Present Skin color Skin None Normal Warm Dry Circulatory - Right Pulses Dorsalis Pedis 1 Scale (0,1,2,3,4,d) Circulatory - Left Pulses Dorsalis Pedis 1 Scale (0,1,2,3,4,d) Neurological State Oriented to time-place- Alert Moves all extremities person Respiration - General Respiration Rate SpO2 (%) (B/min) 18 94 Chronological Log Time Study Chronological Log 15:22:06 Patient arrived via Bed. 15:22:06 Patient Name, D.O.B, / Armband Verified By R.N. 15:22:07 Consent signed by the physician and the patient and verified by the Education Department Chair staff. 15:22:08 Pre-op and post- op instructions given; patient acknowledges understanding of instructions. 15:22:10 Verbal Stimulation=2 Physical Stimulation=2 Airway=2 Respiration=2 TOTAL=8. (0=absent, 1=li mited, 2=present) 15:22:26 Anesthesia at bedside. Assumes care of patient. 15:22:48 Patient has been NPO for More than 6Hrs. 15:22:49 Skin Breakdown- generalized bruising 15:23:00 Patient Warmer Placed on the Table. 15:23:01 Disposable Defibrillator Pads Placed On Patient. 15:23:03 Libby Prominences Protected 15:23:06 A # 20 IV was noted in the Antecubital (left). Grade = 0 0.9ns kvo 09/15/2017 5:22:33 PM Financial #: [id number] 6 of 8 Patient Name: JASPREET RUANO Study #: [id number] Initial MD: Luis Irving Date of : 1945 Study Date: 09/15/2017 15:23:07 A # 20 IV was noted in the Antecubital (right). Grade = 0 0.9ns kvo 15:23:09 History and physical on the chart. Assessment: Initial Case, SI=799 BPM, Rhythm=aflttr, CCFY=419/77 mmhg, Chest Pain=0, Edema=None , Color=Normal, Skin = Warm, Dry Right Pulses: Sy Ped=1 Left Pulses: Sy Ped=2 15:35:29 Lower Right Extremities: Color=Normal Lower Left Extremities: Color=Normal Neurological: State=Alert, Ox3, WARREN Respiration: Resp=18 B/min, VrM0=075 %, O2=4 lpm 15:42:33 Table restraints applied according to hospital policy 15:42:42 Bilateral groins prepped with 2% chlorhexidine, and draped after a 3 minute waiting time. 15:51:38 MD paged 15:52:19 Reference ECG taken 15:57:31 MD arrived. Time Out. Correct patient, procedure, procedure equipment, site and side verified with physicia n present. Time 16:00:00 concurred by MD, individual staff and TRAIN CONTROL TECHNICIAN. Time Out #2 - Consents verified, patient in correct position, all results are labled and displa yed, safety precautions 16:00:10 taken, antibiotics administered. Time out concurred by MD, individual staff and TRAIN CONTROL TECHNICIAN in procedu re 16:00:25 Case Start 16:00:26 20 mL 1% XYLOCAINE given in lab by Luis Irving in Left Groin via Subcutaneous. 16:03:30 MD unable to access left venous system. 16:04:00 20 mL 1% XYLOCAINE given in lab by Luis Irving in Right Groin via Subcutaneous. 16:04:25 Vascular access was obtained in the Fem Vein (right). 16:04:40 Vascular access was obtained in the Fem Vein (right). 16:04:55 Vascular access was obtained in the Fem Vein (right). 16:04:58 Vascular access was obtained in the Fem Vein (right). 16:05:04 A SHEATH, EPS, FR5 FAST CATH FR 5 was advanced into the Fem Vein (right) using the Percutan eous technique. 16:05:10 A SHEATH, EPS, FR5 FAST CATH FR 5 was advanced into the Fem Vein (right) using the Percutan eous technique. 16:05:14 A SHEATH, EPS, FR5 FAST CATH FR 5 was advanced into the Fem Vein (right) using the Percutan eous technique. 16:05:18 A SHEATH, EPS, FR6 FAST CATH FR 6 was advanced into the Fem Vein (right) using the Percutan eous technique. A CATHETER, JSN, QUAD FR 5 was advanced vis Fem Vein (right) and placed in the CS. Placement wa s visually 16:06:55 confirmed under fluoroscopy. A CATHETER, JSN, QUAD FR 5 was advanced vis Fem Vein (right) and placed in the HIS. Placement w as visually 16:07:20 confirmed under fluoroscopy. A CATHETER, JSN, QUAD FR 5 was advanced vis Fem Vein (right) and placed in the HRA. Placement w as visually 16:07:59 confirmed under fluoroscopy. A SHEATH, EPS, FR8 FAST CATH FR 8 was exchanged in the Fem Vein (right). This was necessary in order for catheter 16:10:40 support. A CATHETER, CELSIUS DS, 8MM, F TYPE QUAD FR 7 was advanced vis Fem Vein (right) and placed in t he HRA. 16:11:18 Placement was visually confirmed under fluoroscopy. 16:12:22 RF Ablation of the Isthmus with a CATHETER, CELSIUS DS, 8MM, F TYPE QUAD FR 7. 16:23:00 Abl Catheter was removed A SHEATH, EPS, FR8 SRO 60CM FR 8 was exchanged in the Fem Vein (right). This was necessary in o rder for catheter 16:23:58 support. 09/15/2017 5:22:33 PM Financial #: [id number] Patient Name: JASPREET RUANO Study #: [id number] Initial MD: Luis Irving Date of : 1945 Study Date: 09/15/2017 16:24:25 RF Ablation of the Isthmus with a CATHETER, CELSIUS DS, 8MM, F TYPE QUAD FR 7. 16:52:35 EPS in progress. 4 mcg/min ISUPREL given in lab by Anesthesia, TRAIN CONTROL TECHNICIAN via Peripheral IV. Pump/Drip Flow = 60 ml/h r using NaCl .9 with 16:59:00 a concentration of 1 mg in 250 ml. Ordered by Luis Irving. Reason: As per physicians verbal order. 17:07:48 Isuprel off. 17:08:07 Ablation complete. All catheter(s) removed without difficulty 17:09:10 Case End A SHEATH, EPS, FR8 FAST CATH FR 8 was exchanged for SRO in the Fem Vein (right). This was nece ssary in order to 17:10:12 minimize site leakage. 17:11:07 Sheath(s) left in place, will be removed in Holding Area. 17:11:23 CICU called. Spoke to Adina 17:11:37 Bedside Report will be given. 17:18:47 Defibrillator and ground pads removed. Skin intact. Assessment: Final Case, HR=90 BPM, Rhythm=sr, NIBP=99/5 mmhg, Chest Pain=0, Edema=None, Color= Normal, Skin = Warm, Dry Right Pulses: Sy Ped=1 17:19:08 Left Pulses: Sy Ped=1 Neurological: State=Alert, Ox3, WARREN Respiration: Resp=18 B/min, SpO2=94 % 17:21:51 Patient moved to stretcher 17:22:15 Ablation procedure performed: Aflutter. 17:22:22 EP Procedure was performed. End Study - Contrast Media Used In Study Contrast Total Opened (mL) Total Used (mL) Total Wasted (mL) Unspecified 0 0 0 End Study - Maximum Contrast Load Max Contrast Load (mL) 318.5 End Study - Radiation Exposure Fluoro Time (minutes) 17.7 End Study - Patient Disposition Complications Transferred To Interventional Outcome No Telemetry Bed successful 09/15/2017 5:22:33 PM Financial #: [id number]
[2017-09-15] MEDS ORDERED: MIDAZOLAM HCL 2 MG/2 ML VIAL ONE (17:25)
[2017-09-15] MEDS ORDERED: ONDANSETRON HCL 4 MG/2 ML VIAL IV PUSH PRN (17:30)
[2017-09-15] MEDS ORDERED: LIDOCAINE HCL 1% 50 ML VIAL INFIL PRN (17:30)
[2017-09-15] MEDS ORDERED: BACITRACIN OINT 0.9 GM PKT TOP ONE (17:30)
[2017-09-15] MEDS ORDERED: oxyCODONE/ACETAMINOPHEN 5 MG/325 MG TAB PO PRN ×2 (17:30)
[2017-09-15] MEDS ORDERED: ATROPINE SULFATE 1 MG/ML VIAL IV PUSH PRN (17:30)
[2017-09-15] MEDS ORDERED: LORazepam 2 MG/ML VIAL IV PUSH PRN (17:30)
[2017-09-15] MEDS ORDERED: SODIUM CHLOR 0.9% 250 ML INJ 250 ML IV PRN (17:30)
[2017-09-15] MEDS ORDERED: NEBIVOLOL 10 MG TAB PO SCH (21:00)
[2017-09-15] MEDS ORDERED: RIVAROXABAN 20 MG TAB PO SCH (21:00)
[2017-09-15] MEDS ORDERED: PRAVASTATIN SOD 20 MG TAB PO SCH (21:00)
[2017-09-15] MEDS: ALLOPURINOL 100 MG TAB PO SCH (22:06)
[2017-09-16] VITALS (12 sets, daily range): BP systolic 100–124; BP diastolic 66–77; PULSE 72–87; RESP 16–18; TEMP 98; O2SAT 98–100
[2017-09-16 06:45] LABS: INTERNATIONAL NORMALIZED RATIO 1.2 RATIO; PROTHROMBIN TIME - PATIENT 12.5 SEC (9.8-11.6)
[2017-09-16] MEDS: SODIUM CHLORID 0.9% 500 ML INJ 500 ML IV SCH (07:10)
[2017-09-16] MEDS: ALLOPURINOL 100 MG TAB PO SCH (08:15)
--- NOTE | 2017-09-16 08:23 | PD.CARD.PN ---
Subjective Subjective Remarks Feels okay. Objective Medications Current Medications Medications (Trade) Dose Ordered Sig/Ellie Route Start Time Stop Time Status Last Admin Sodium Chloride 500 ml @ 30 mls/hr [id number] IV 09/15/17 14:30 09/15/17 15:22 (Ativan) 1 mg SEISMOGRAPH COMPUTER SL 09/15/17 14:30 09/18/17 14:29 (Percocet 5-325 Mg) 1 tab Q4H PRN PO 09/15/17 17:30 (Percocet 5-325 Mg) 2 tab Q4H PRN PO 09/15/17 17:30 (Ativan Inj) 0.5 mg UNSCH PRN IV PUSH 09/15/17 17:30 09/16/17 17:29 (Atropine Inj) 0.5 mg UNSCH PRN IV PUSH 09/15/17 17:30 Sodium Chloride 250 ml @ 500 mls/hr ONCE PRN IV 09/15/17 17:30 09/16/17 17:29 (Zofran Inj) 4 mg Q4H PRN IV PUSH 09/15/17 17:30 (Xylocaine 1% Inj (50 ml)) 10 ml UNSCH PRN INFIL 09/15/17 17:30 09/16/17 17:29 (Zyloprim) 100 mg BID PO 09/15/17 21:00 09/16/17 08:15 (Bystolic) 10 mg HS PO 09/15/17 21:00 09/15/17 22:05 (Xarelto) 20 mg HS PO 09/15/17 21:00 (Dyazide 37.5-25 Mg) 1 cap DAILY PO 09/16/17 09:00 (Pravachol) 20 mg HS PO 09/15/17 21:00 09/15/17 22:06 Vital Signs / I&O Vital Signs Date Time Temp Pulse Resp B/P (MAP) Pulse Ox O2 Delivery O2 Flow Rate FiO2 09/16/17 07:01 82 09/16/17 06:00 82 09/16/17 05:00 78 09/16/17 04:00 78 09/16/17 04:00 82 16 108/66 (80) 98 09/16/17 04:00 79 09/16/17 03:00 80 09/16/17 02:00 80 09/16/17 01:00 84 09/16/17 00:00 85 09/16/17 00:00 87 16 100/68 (79) 100 09/16/17 00:00 82 09/15/17 23:00 90 09/15/17 22:00 90 09/15/17 21:00 96 09/15/17 20:00 98.2 90 16 105/70 (82) 100 09/15/17 20:00 86 09/15/17 20:00 88 09/15/17 19:00 90 09/15/17 19:00 88 09/15/17 18:00 85 09/15/17 14:33 98.1 117 18 149/94 (112) 96 I/O 09/15/17 09/15/17 09/15/17 09/16/17 09/16/17 09/16/17 07:00 15:00 23:00 07:00 15:00 23:00 Intake Total 480 ml 240 ml Output Total 0 ml Balance 480 ml 240 ml Intake Oral 480 ml 240 ml Output Urine Total 0 ml # Voids 3 Physical Exam GENERAL: Well-nourished, well-developed patient. SKIN: Warm and dry. Groin site soft without bruising or bleeding. HEAD: Normocephalic. EYES: No scleral icterus. No injection or drainage. NECK: Supple, trachea midline. No JVD or lymphadenopathy. CARDIOVASCULAR: Regular rate and rhythm without gallops, or rubs. 2/6 holosystolic murmur. RESPIRATORY: Breath sounds equal bilaterally. No accessory muscle use. GASTROINTESTINAL: Abdomen soft, non-tender, nondistended. EXTREMITIES: No cyanosis, or edema. NEUROLOGICAL: Awake, alert, and oriented x 3. Non-focal. Laboratory Laboratory Tests Test 09/15/17 14:30 09/16/17 06:05 White Blood Count 24.2 TH/MM3 Red Blood Count 3.35 MIL/MM3 Hemoglobin 10.0 GM/DL Hematocrit 30.6 % Mean Corpuscular Volume 91.2 FL Mean Corpuscular Hemoglobin 29.9 PG Mean Corpuscular Hemoglobin Concent 32.8 % Red Cell Distribution Width 25.4 % Platelet Count 122 TH/MM3 Mean Platelet Volume 9.1 FL CBC Comment AUTO DIFF Differential Total Cells Counted 100 Neutrophils % (Manual) 68 % Band Neutrophils % 7 % Lymphocytes % 18 % Monocytes % 5 % Neutrophils # (Manual) 18.6 TH/MM3 Metamyelocytes 2 % Nucleated Red Blood Cells 4 /100 WBC Differential Comment FINAL DIFF MANUAL Atypical Lymphocytes % Platelet Estimate LOW Platelet Morphology Comment ENLARGED Basophilic Stippling FAINT Tear Drop Cells 1+ Ovalocytes 1+ Prothrombin Time 12.2 SEC 12.5 SEC Prothromb Time International Ratio 1.2 RATIO 1.2 RATIO Activated Partial Thromboplast Time 26.4 SEC 25.8 SEC Blood Urea Nitrogen 35 MG/DL Creatinine 1.26 MG/DL Random Glucose 98 MG/DL Calcium Level 8.3 MG/DL Sodium Level 141 MEQ/L Potassium Level 4.1 MEQ/L Chloride Level 105 MEQ/L Carbon Dioxide Level 28.0 MEQ/L Anion Gap 8 MEQ/L Estimat Glomerular Filtration Rate 56 ML/MIN Assessment and Plan Problem List: (1) SVT (supraventricular tachycardia) ICD Codes: I47.1 - Supraventricular tachycardia Plan: Normal sinus rhythm status post ablation. Continue Xarelto, discharge home, follow-up with Dr. Irving in 3 weeks per my discussion with him. Selma Castro Sep 16, 2017 08:23
[2017-09-16] MEDS ORDERED: TRIAMTERENE/HCTZ 37.5 MG/25 MG CAP PO SCH (09:00)
--- NOTE | 2017-09-16 10:23 | MA ---
cc: Luis Irving MD, Hanscy MD Chang,Tressa Mathur MD DATE: 09/15/2017 PROCEDURE: CS cannulation, 3-D mapping, radiofrequency ablation of atrial flutter. Very difficult case. He has isolation. INDICATIONS: Mr. Hardy is a 72-year-old gentleman with history of tachyarrhythmia, very symptomatic, who was referred for electrophysiology study and ablation. The risks, the nature and the benefits of the procedure are clearly stated to him. Risks include pneumothorax, cardiac perforation and even . The patient understood and agreed to proceed. The patient received blood and platelet transfusion before the procedure. PROCEDURE IN DETAIL: After written informed consent was obtained, the patient was brought to the EP lab where he was prepped and draped in the usual sterile fashion. Conscious sedation was initiated and maintained through the procedure by anesthesiologist. Once sedation was verified, I attempted to cannulate the left femoral vein but I cannot. Then, the right inguinal area was anesthetized with 2% Xylocaine. Using modified Seldinger technique, the right femoral vein was cannulated on 4 occasions, 4 guidewires were advanced. Over the wires, a 3, 5 and a 6-Saudi Arabian Hemaquet were advanced. Then, under fluoroscopic guidance through the 5 and 6-S[place] Hemaquet, four 5 [place] Abiola curved quadripolar electrophysiology catheters were advanced and placed along the His, upper right atrium, coronary sinus and right ventricular apex. I did cross the IVC filter without difficulty. That was done under fluoroscopic guidance. At that point, I did realize the patient was in atrial flutter. A ____ was performed and was positive. Further cycle length was about 270 milliseconds. Then, the RV catheter was removed and I did upgrade the 5-Saudi Arabian to an 8-Saudi Arabian Hemaquet. Then, through the 8-Saudi Arabian Hemaquet, a Cordis Tavarez Ac[employer] continuous F-curve 8 mm mapping and radiofrequency ablation catheter was advanced. Using [employer] mapping system, a 3-dimensional configuration of the right atrium was obtained. Then, the catheter placed at the critical isthmus. Radiofrequency energy was delivered. During ablation at the back of the isthmus, cycle length followed to 320 milliseconds. At this point, I had difficulty to reach the back of the ridge. I did upgrade the 8-Saudi Arabian Hemaquet to an SR0 and placed at the right atrium. Then, through the SR0 the catheter was advanced. Ablation was performed, cycle length prolonged. Subsequently, cycle length was at 400 milliseconds. I decided to ablate the ostial portion of the coronary sinus and make a line from the coronary sinus to the ridge. During ablation, the patient converted into sinus rhythm. Further burn was delivered in the area. Then, atrial pacing protocol was performed at the coronary sinus. I did pace up to 220 milliseconds cycle length. No tachyarrhythmia was induced. Then, Isuprel infusion was initiated. Atrial pacing protocol was repeated again, no tachyarrhythmia was induced. At that point, the procedure was complete. All catheters were removed. The SR0 was exchanged for an 8-Saudi Arabian Hemaquet. The patient is going to be transferred to the recovery room. That was a very complex case. No incident reported. Patient tolerated the procedure. Blood loss minimal. I. Electrocardiogram: At baseline, the patient was in atrial flutter. Postprocedure, the patient in sinus rhythm. 2. Basic interval. Base cycle length was around 510 milliseconds; post flutter cycle length was around 270 milliseconds. Post-ablation basic cycle length was around 764 milliseconds. A-H at 112 and H-V at 45 milliseconds. 3. Atrial base protocol. No tachyarrhythmia was induced post-ablation. 4. Tachyarrhythmia: Atrial flutter was mapped ____; ablation was successful. CONCLUSIONS: Successful electrophysiology study, mapping, radiofrequency ablation of atrial flutter. COMMENT AND RECOMMENDATION: Patient is going to be transferred to the recovery room. He will be observed. When stable, can be discharged home. Luis Irving MD HS/SA/ , 05:24 PM , 05:56 PM
--- NOTE | 2017-09-16 17:40 | EKG ---
Date Performed: 09/15/2017 Time Performed: 14:44:38 PTAGE: 72 years EKG: Consider Atrial flutter with rapid ventricular response with 2:1 A-V block. Extensive ST-T changes are nonspecific Abnormal ECG PREVIOUS TRACING : 08/18/2017 09.39 DOCTOR: Lennox Elise Interpretating Date/Time 09/16/2017 17:39:28
--- NOTE | 2017-09-16 17:40 | EKG ---
Date Performed: 09/16/2017 Time Performed: 06:08:46 PTAGE: 72 years EKG: Sinus rhythm with borderline 1st degree A-V block Leftward axis Possible anterior infarct - age undetermined Infe rior/lateral T wave changes may be due to myocardial ischemia Since the previous tracing, no signific ant change noted Abnormal ECG PREVIOUS TRACING : 09/15/2017 14.44 DOCTOR: Lennox Elise Interpretating Date/Time 09/16/2017 17:39:39
== END 2017-09-16 10:37 | disposition home or self-care (01) ==
LOC: HDOC 13:58 → HDIC 14:00 → HCIS 17:39 → HDOC 09-16 10:37
PROVIDERS: ATTEND Internal Medicine Interventional Cardiology
DX: I47.1 Supraventricular tachycardia (principal); I48.92 Unspecified atrial flutter; I10 Essential (primary) hypertension; D75.81 Myelofibrosis; E78.5 Hyperlipidemia, unspecified; Z79.01 Long term (current) use of anticoagulants
CPT/HCPCS: 00537; 80048; 85007; 85027; 85610; 85730; 86850; 86900; 86901; 93005; 93613; 93623; 93653; C1730; C1732; C2630; J1644; J2250; J3010; J7040; J2370